=== PATIENT | female | born 1950 | race Caucasian/White ===

== ENCOUNTER 2022-09-14 16:47 | Emergency (ER) | payer MEDICARE, MEDICAID, SELFPAY ==
--- NOTE | 2022-09-14 17:22 | XRR_ITS ---
PROCEDURE INFORMATION: Exam: XR Left Foot Exam date and time: 09/14/2022 5:30 PM Age: 71 years old Clinical indication: Pain; Ankle; Left; Additional info: Swelling, pain TECHNIQUE: Imaging protocol: Radiologic exam of the Left foot. Views: 3 or more views. COMPARISON: No relevant prior studies available. FINDINGS: Bones/joints: Osteopenia. No acute fracture dislocation or obvious bony erosions. Mild 1st MTP degenerative changes with probable hallux valgus. Soft tissues: Dorsal soft tissue swelling. No soft tissue gas. Other findings: Three nonweightbearing views submitted. XR/XR foot LT min 3V* [id number] IMPRESSION: No acute osseous findings.
--- NOTE | 2022-09-14 17:22 | XRR_ITS ---
PROCEDURE INFORMATION: Exam: XR Left Ankle Exam date and time: 09/14/2022 5:30 PM Age: 71 years old Clinical indication: Pain; Ankle; Left; Additional info: Swelling, pain TECHNIQUE: Imaging protocol: Radiologic exam of the Left ankle. Views: 3 or more views. COMPARISON: No relevant prior studies available. FINDINGS: Bones/joints: Osteopenia. No acute fracture dislocation or suspicious periosteal thickening/bony erosions. Minimal spurring at the dorsal talonavicular joint and medial tibiotalar joint. Soft tissues: Soft tissue swelling without soft tissue gas. XR/XR ankle LT min 3V* [id number] IMPRESSION: Soft tissue swelling. No soft tissue gas or obvious acute osseous findings.
--- NOTE | 2022-09-14 17:22 | USR_ITS ---
PROCEDURE INFORMATION: Exam: US Duplex Left Lower Extremity Veins, Limited Exam date and time: 09/14/2022 5:41 PM Age: 71 years old Clinical indication: Edema, localized; Lower extremity, left; Additional info: Swelling, redness, pain TECHNIQUE: Imaging protocol: Real-time Duplex ultrasound of the Left Lower Extremity with 2-D emerson scale, color Doppler flow and spectral waveform analysis with image documentation. Limited exam focused on the left lower extremity veins. COMPARISON: CR XR ankle LT min 3V* [id number] 09/14/2022 5:30 PM FINDINGS: Left deep veins: Calf vein assessment is limited due to body habitus and soft tissue swelling. The common femoral, femoral, proximal profunda femoral and popliteal veins are patent without thrombus. Normal Doppler waveforms. Normal compressibility and/or augmentation response. Left superficial veins: Unremarkable. Saphenofemoral junction is patent without thrombus. Soft tissues: Subcutaneous soft tissue edema is present. US/[place] [address] IMPRESSION: No acute DVT.
[2022-09-14 17:30] VITALS: BP 172/62; PULSE 63; RESP 17; TEMP 36.9; O2SAT 98
--- NOTE | 2022-09-14 18:01 | W.ED.FALL ---
HPI - Fall General: Chief Complaint: Fall Stated Complaint: Left foot pain Time Seen by Provider: 09/14/22 17:01 Source: other ([facility] documents) Mode of arrival: EMS Limitations: altered mental status (dementia) History of Present Illness: Patient was brought to the emergency department by EMS from the nursing facility. Neither myself or the nurse was present to take report from EMS and the patient has dementia where she is only oriented to person. There is a packet from the [facility] and a note indicating they wanted a venous Doppler of the left extremity and x-ray of the left foot due to complaints of pain, swelling, now redness. All of the review was from the patient's prior paperwork as there are no previous documents in the patient's chart. Patient showed no signs of CHF or CKD recorded but does have anemia and significant dementia. Patient apparently has recurrent falls as indicated by her paperwork. When asked why the patient was brought in, patient stated I guess it is because I needed to go to the bathroom . Review of Systems General: Reports: ROS unobtainable due to mental status (Patient is not responding to questions appropriately) Physical Exam Const: COMMON NORMALS: no acute distress and alert; negative for patient oriented x3 OTHER: Patient is pleasant and smiling. She is very social however, when asked basic questions like did you hurt your foot? Patient will respond with something unrelated to any type of foot injury or pain. HENMT: COMMON NORMALS: normocephalic; head/scalp not atraumatic HEAD & SCALP: normocephalic, contusion and hematoma; not atraumatic and no raccoon eyes Eye: COMMON NORMALS: Equal, round and reactive pupils present, EOMs intact bilaterally and conjunctivae normal CONJUNCTIVA: Yes conjunctivae normal PUPIL: Yes Equal, round and reactive pupils present Neck/C-Spine: COMMON NORMALS: full ROM, no meningeal signs and no JVD Resp: COMMON NORMALS: normal respiratory effort, No retractions and No use of accessory muscles Cardio: COMMON NORMALS: no JVD, regular rate and regular rhythm RATE: regular rate RHYTHM: regular rhythm GI: COMMON NORMALS: Normal to inspection, nondistended, normoactive bowel sounds present and Soft to palpation PALPATION: Yes Soft to palpation : COMMON NORMALS: Yes normal external appearance Extremity: COMMON NORMALS: negative for full ROM (patient not ambulatory while in ER) and negative for no pedal edema NARRATIVE EXTREMITY EXAM: Initial intake note indicated an observed shortened and rotated right lower extremity however, reinspection showed patient with normal anatomical placement of her right lower extremity including the foot with flexion extension of her right hip observed Neuro: COMMON NORMALS: negative for patient oriented x3 SENSORIUM/ORIENTATION: Yes alert MENINGEAL SIGNS: Yes no meningeal signs Skin: OTHER: Patient is covered in bruises of various stages of healing. Patient has a large bruise affecting the left side of her face that is yellow. She has multiple bruises on her upper extremities. Patient has purple bruising noted to the toes of the left foot. Patient has a large bruise to the right anterior kang. Patient has a large well-healed surgical scar along the lateral proximal right thigh. Patient has an area of erythema and what appears to be yeast infection to her mid pannus fold however, there is cream/poweder along her pannus fold noted. Patient's left lower extremity is edematous with 2+ pitting. There is erythema to the distal left lower extremity and ankle with edema into the left foot as well. Patient did not indicate pain on palpation during exam. Course Vital Signs: Vital signs: Vital Signs Temperature 98.5 F 09/14/22 17:30 Pulse Rate 63 09/14/22 17:30 Respiratory Rate 17 09/14/22 17:30 Blood Pressure 172/62 09/14/22 17:30 Pulse Oximetry 98 09/14/22 17:30 Oxygen Delivery Me thod 09/14/22 17:30 MDM - Fall Medical Decision Making Patient presents to the emergency department today from EMS transport. Patient comes with a packet of paperwork from her nursing facility indicating concerns for the swelling and redness of her left lower extremity requesting imaging of the left foot and venous ultrasound of the left lower extremity. Venous Doppler is negative. The swelling is unilateral and with the erythema, did suspect more of an infectious type pattern. Lab work shows a slightly elevated white blood cell count. Urinalysis is negative for any signs of infection. We will treat for cellulitis based on exam and lab work. Patient was given her first dose of doxycycline here with prescription sent on for her to continue treatment at her nursing facility. Differential Diagnosis Likely syncope and compression fracture (Foot fracture, ankle fracture, hematoma, DVT, cellulitis, UTI) Lab Data 09/14/22 18:10 09/14/22 18:10 Radiology Impressions Ankle X-Ray 09/14/22 17:22 IMPRESSION: Soft tissue swelling. No soft tissue gas or obvious acute osseous findings. Foot X-Ray 09/14/22 17:22 IMPRESSION: No acute osseous findings. Venous Duplex 09/14/22 17:22 IMPRESSION: No acute DVT. Laboratory Results WBC 10.1 10^3/uL (4.0-10.0) H 09/14/22 18:10 RBC 4.06 10^6/uL (4.1-5.3) L 09/14/22 18:10 Hgb 11.6 g/dL (11.5-15.3) 09/14/22 18:10 Hct 36.4 % (37.0-47.0) L 09/14/22 18:10 MCV 89.7 fl (81-99) 09/14/22 18:10 MCH 28.6 pg (28.0-34.0) 09/14/22 18:10 MCHC 31.9 g/dL (30.0-36.0) 09/14/22 18:10 RDW 12.9 % (12.1-15.1) 09/14/22 18:10 Plt Count 388 10^3/cmm (130-400) 09/14/22 18:10 MPV 10.0 fL (7.4-10.4) 09/14/22 18:10 Neut % (Auto) 67.8 % 09/14/22 18:10 Lymph % (Auto) 19.8 % 09/14/22 18:10 [place] % (Auto) 8.2 % 09/14/22 18:10 Eos % (Auto) 3.3 % 09/14/22 18:10 Baso % (Auto) 0.7 % 09/14/22 18:10 Neut # (Auto) 6.83 10^3/uL (1.8-7.7) 09/14/22 18:10 Lymph # (Auto) 2.0 10^3/uL (0.8-4.8) 09/14/22 18:10 [place] # (Auto) 0.8 10^3/uL (0.2-0.9) 09/14/22 18:10 Eos # (Auto) 0.3 10^3/uL (0.0-0.8) 09/14/22 18:10 Baso # (Auto) 0.1 10^3/uL (0.0-0.1) 09/14/22 18:10 Nucleated RBC % (auto) 0 % 09/14/22 18:10 Nucleated RBCs # 0.0 /100WBC 09/14/22 18:10 Sodium 136 mmol/L (136-145) 09/14/22 18:10 Potassium 4.1 mmol/L (3.5-5.1) 09/14/22 18:10 Chloride 101 mmol/L (98-107) 09/14/22 18:10 Carbon Dioxide 26 mmol/L (22-29) 09/14/22 18:10 Anion Gap 13.1 (5-19) 09/14/22 18:10 BUN 16 mg/dL (8-23) 09/14/22 18:10 Creatinine 0.8 mg/dL (0.5-0.9) 09/14/22 18:10 GFR Calculation Not Reportable 09/14/22 18:10 Glucose 96 mg/dL (65-115) 09/14/22 18:10 Calculated Osmolality 283 mOsm/kg (285-295) L 09/14/22 18:10 Calcium 9.0 mg/dL (8.5-10.5) 09/14/22 18:10 Total Bilirubin 0.3 mg/dL (0.15-1.2) 09/14/22 18:10 AST 17 U/L (0-32) 09/14/22 18:10 ALT 18 U/L (0-33) 09/14/22 18:10 Alkaline Phosphatase 91 U/L (35-105) 09/14/22 18:10 Total Protein 7.3 g/dL (6.6-8.7) 09/14/22 18:10 Albumin 3.8 g/dL (3.5-5.2) 09/14/22 18:10 Globulin 3.5 g/dL (1.3-4.6) 09/14/22 18:10 Urine Color Yellow (Yellow) 09/14/22 17:18 Urine Appearance Clear (CLEAR) 09/14/22 17:18 Urine pH 7 (5-7) 09/14/22 17:18 Ur Specific [place] 1.005 (1.005-1.030) 09/14/22 17:18 Urine Protein Neg (Negative) 09/14/22 17:18 Urine Glucose (UA) Norm (Normal) 09/14/22 17:18 Urine Ketones Negative (Negative) 09/14/22 17:18 Urine Blood Neg (Negative) 09/14/22 17:18 Urine Nitrate Negative (Negative) 09/14/22 17:18 Urine Bilirubin Neg (Negative) 09/14/22 17:18 Urine Urobilinogen Neg mg/dL (Negative) 09/14/22 17:18 Ur Leukocyte Esterase Negative (Negative) 09/14/22 17:18 Discharge Plan Discharge Patient Disposition: Home Clinical Impression: Cellulitis of left lower limb Condition: Stable Prescriptions: New doxycycline hyclate 100 mg tablet 100 mg PO BID 10 Days Qty: 20 0RF Discharge Orders: Discharge ED (Routine); Ordered 09/14/22 Ordered By: America Carrera Referrals: Dianelys Escobar FNP [Family Provider] - Discharge Diet: Usual diet Discharge Activity: Increase activity as tolerated Patient Instructions: Cellulitis (ED) Activity Restrictions/Additional Instructions: Imaging today was negative for any signs of acute bony abnormality or injuries. Patient's lab work showed a slightly elevated white blood cell count and a completely normal urinalysis. Given the swelling and erythema of the left lower extremity we are treating for a cellulitis. Patient received an IV dose of doxycycline here in the ER and a prescription for continued treatment over the next 10 days was provided. Patient needs to try and keep the extremity up and elevated. She needs to take her medications and continue to observe for any spreading swelling, redness, or new onset fevers. If patient is acutely worsening she should be seen and reevaluated again. Coding Level of Care Code ED [employer] for [employer] Fwd Exam Comprehensive
[2022-09-14 18:20] LABS: Basophils # 0.1 10^3/uL (0.0-0.1); Basophils % 0.7 %; Eosinophils # 0.3 10^3/uL (0.0-0.8); Eosinophils % 3.3 %; Hematocrit 36.4 % (37.0-47.0); Hemoglobin 11.6 g/dL (11.5-15.3); Lymphocytes % 19.8 %; Mean Corpuscular HGB Conc 31.9 g/dL (30.0-36.0); Mean Corpuscular Hemoglobin 28.6 pg (28.0-34.0); Mean Corpuscular Volume 89.7 fl (81-99); Monocytes # 0.8 10^3/uL (0.2-0.9); Monocytes % 8.2 %; Neutrophils # 6.83 10^3/uL (1.8-7.7); Neutrophils % 67.8 %; Nucleated Red Blood Cells % 0 %; Platelet Count 388 10^3/cmm (130-400); Red Blood Count 4.06 10^6/uL (4.1-5.3); Red Cell Distribution Width 12.9 % (12.1-15.1); White Blood Count 10.1 10^3/uL (4.0-10.0)
--- NOTE | 2022-09-14 18:40 | PC.NURSE ---
pedal pulses present via Doppler
[2022-09-14 18:50] LABS: Alanine Aminotransferase 18 U/L (0-33); Albumin Level 3.8 g/dL (3.5-5.2); Alkaline Phosphatase 91 U/L (35-105); Anion Gap 13.1 (5-19); Aspartate Amino Transferase 17 U/L (0-32); Blood Urea Nitrogen 16 mg/dL (8-23); Carbon Dioxide 26 mmol/L (22-29); Chloride 101 mmol/L (98-107); Globulin 3.5 g/dL (1.3-4.6); Glucose 96 mg/dL (65-115); Osmolality Calculated 283 mOsm/kg (285-295); Potassium 4.1 mmol/L (3.5-5.1); Sodium 136 mmol/L (136-145); Total Bilirubin 0.3 mg/dL (0.15-1.2); Total Protein 7.3 g/dL (6.6-8.7)
[2022-09-14 20:15] LABS: Add Urine Microscopic? NO; Charge for UA Resulting for Rev
[2022-09-14 20:27] LABS: Bilirubin Urine Neg (Negative); Blood Urine Neg (Negative); Glucose Urine UA Norm (Normal); Ketones Urine Negative (Negative); Leukocyte Esterase Urine Negative (Negative); Nitrate Urine Negative (Negative); Protein Urine Neg (Negative); Specific Gravity, Urine 1.005 (1.005-1.030); Urine Appearance Clear (CLEAR); Urine Color Yellow (Yellow); Urobilinogen Urine Neg (Negative); pH Urine 7 (5-7)
[2022-09-14 21:07] VITALS: BP 168/71; PULSE 65; RESP 18; O2SAT 98
[2022-09-14] MEDS: doxycycline 100 MG in sodium chloride 0.9% (plus) 100 ML IV (21:37)
[2022-09-14 22:30] VITALS: BP 155/69; PULSE 62; RESP 18; O2SAT 99
--- NOTE | 2022-09-15 00:05 | PC.NURSE ---
Updated report and discharge reported to PIETER Beltran at [facility]
[2022-09-15 02:00] VITALS: BP 149/74; PULSE 62; RESP 16; O2SAT 97
--- NOTE | 2022-09-15 05:47 | XRR_ITS ---
PROCEDURE INFORMATION: Exam: XR Right Hip Exam date and time: 09/15/2022 5:49 AM Age: 71 years old Clinical indication: Right hip pain. History of hip arthroplasty. External rotation and forshortening of right leg. Possible fracture. TECHNIQUE: Imaging protocol: Radiologic exam of the Right hip. Views: 1 view hip with pelvis when performed. COMPARISON: CT abdomen pelvis wo con [id number] 09/13/2017 8:36 AM FINDINGS: Bones/joints: A right hip hemiarthroplasty is situated in appropriate alignment. No hardware complication or fracture is seen. There is deformity of the mid femoral diaphysis related to remote, healed fracture. 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 Soft tissues: No gross soft tissue swelling. XR/XR hip RT 2-3V wo/w pel* [id number] IMPRESSION: A right hip hemiarthroplasty is situated in appropriate alignment. No hardware acute fracture or hardware complication is seen. 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
[2022-09-15 06:07] VITALS: BP 161/64; PULSE 66; RESP 18; O2SAT 98
--- NOTE | 2022-09-15 20:57 | PC.NURSE ---
Positive Blood Culture results taken via verbal from Lab for gram positive cocci clusters . Dr. momin notified and stated Doxycycline Prescription appropriate and will re-evaluate remaining blood cultures.
== END 2022-09-15 06:08 | disposition home or self-care (01) ==
PROVIDERS: Emergency Provider Physician Assistant; Family Provider Nurse Practitioner
DX: L03.116 Cellulitis of left lower limb (principal); F03.90 Unspecified dementia, unspecified severity, without behavioral disturbance, psychotic disturbance, mood disturbance, and anxiety
CPT/HCPCS: 36415; 73502; 73610; 73630; 80053; 81003; 85025; 87040; 93971; 96365; 96366; 99285; J3490

== ENCOUNTER 2023-10-15 13:22 | Emergency (ER) | payer MEDICARE, MEDICAID, SELFPAY ==
--- NOTE | 2023-10-15 13:31 | W.ED.AMS ---
Documented by User: Nroris Westbrook DO 10/16/23 14:16 HPI - Altered Mental Status General: Chief Complaint: Altered Mental Status Stated Complaint: AMS Time Seen by Provider: 10/15/23 13:30 Source: EMS Mode of arrival: ambulatory History of Present Illness: 72-year-old female patient presents to the ER status post following. Patient fell approximately on October 03, 2023. Patient had some increased confusion since then. Patient is normally able to ambulate. Last few days she has not been acting like herself. Patient's range of motion is limited due to leg pain. Left knee is remarkably swollen compared to the right. We did contact care home to confirm history she had been seen at another facility evaluation was negative per the report MD complaint: altered mental status Onset (ago): minute(s) Review of Systems Const: Denies: fever(s) or chills Card: Denies: chest pain Resp: Denies: dyspnea GI: Denies: abdominal pain : Denies: dysuria, urinary frequency or urinary urgency Musc: Denies: neck pain or back pain Skin/Breast: Denies: rash Physical Exam Const: GENERAL APPEARANCE: cooperative and comfortable ORIENTATION/CONSCIOUSNESS: Yes awake HENMT: COMMON NORMALS: normocephalic, atraumatic and hearing grossly normal bilaterally HEAD & SCALP: normocephalic and atraumatic Resp: COMMON NORMALS: normal respiratory effort, No retractions, No use of accessory muscles and clear to auscultation bilaterally AUSCULTATION: clear to auscultation bilaterally Cardio: COMMON NORMALS: regular rate, regular rhythm and No murmurs present (Cardio) RATE: regular rate RHYTHM: regular rhythm GI: COMMON NORMALS: Soft to palpation and No hepatosplenomegaly present AUSCULTATION: Yes normoactive bowel sounds PALPATION: Yes Soft to palpation, No Tenderness to palpation present (GI), No Guarding due to palpation present (GI) and Yes No hepatosplenomegaly present Extremity: OTHER: Obvious deformity to the right knee with ecchymosis and swelling Skin: COMMON NORMALS: no rashes or lesions noted GENERAL SKIN EXAM: no rashes or lesions noted Course Vital Signs: Vital signs: Vital Signs Pulse Rate 90 10/15/23 22:07 Respiratory Rate 18 10/15/23 21:26 Blood Pressure 136/92 10/15/23 22:07 Pulse Oximetry 96 10/15/23 22:07 Oxygen Delivery Me thod Room Air 10/15/23 21:26 MDM - Altered Mental Status Medical Decision Making Patient has obvious deformity distal femur with fracture around the arthroplasty. Initially discussed with Dr. Almendarez and hospitalist will Dr. Almendarez recommended admission for fixation. Later Dr. Almendarez contacted me found he did not have the appropriate equipment to plate this fracture came down to the ER and ultimately recommended transfer to a tertiary care facility. Dr. Melissa was on duty by then to see Dr. Melissa's note for transfer. Dr. Almendarez Ortho came down and evaluated the patient as well as her scans. He feels that she probably needs a distal femur replacement which cannot be performed at this facility. Patient be transferred out. [facility] was called this will be ER to ER transfer secondary to trauma Dr. Heredia ER doc accepted. We also called the trauma Ortho team and I spoke with their PA who said they can take care of this no problem. Patient will be transferred to [facility] ER Lab Data 10/15/23 13:58 10/15/23 13:[address] 10/15/23 15:25 IMPRESSION: Fracture of the distal left femur abutting the femoral component of the arthroplasty. The fracture is not fully characterized due to the considerable streak artifact. There is probably loosening of the femoral component of the arthroplasty. Left knee joint effusion. Head CT 10/15/23 17:22 IMPRESSION: 1. No acute intracranial abnormality. Femur X-Ray 10/15/23 17:24 IMPRESSION: 1. Acute comminuted displaced periprosthetic fracture of the distal left femur. Laboratory Results WBC 12.43 10^3/uL (3.29-11.43) H 10/15/23 13:58 RBC 3.72 10^6/uL (3.85-5.65) L 10/15/23 13:58 Hgb 10.70 g/dL (11.27-16.99) L 10/15/23 13:58 Hct 33.5 % (36-47) L 10/15/23 13:58 MCV 90.1 fl (85-98) 10/15/23 13:58 MCH 28.8 pg (27-33) 10/15/23 13:58 MCHC 31.9 g/dL (30-55) 10/15/23 13:58 RDW 13.1 % (12.1-15.1) 10/15/23 13:58 Plt Count 456 10^3/cmm (157-399) H 10/15/23 13:58 MPV 9.7 fL (7.4-10.4) 10/15/23 13:58 Neut % (Auto) 78.1 % 10/15/23 13:58 Lymph % (Auto) 10.5 % 10/15/23 13:58 Swisher % (Auto) 7.3 % 10/15/23 13:58 Eos % (Auto) 3.0 % 10/15/23 13:58 Baso % (Auto) 0.7 % 10/15/23 13:58 Neut # (Auto) 9.71 10^3/uL (1.8-7.7) H 10/15/23 13:58 Lymph # (Auto) 1.3 10^3/uL (0.8-4.8) 10/15/23 13:58 Swisher # (Auto) 0.9 10^3/uL (0.2-0.9) 10/15/23 13:58 Eos # (Auto) 0.4 10^3/uL (0.0-0.8) 10/15/23 13:58 Baso # (Auto) 0.1 10^3/uL (0.0-0.1) 10/15/23 13:58 Nucleated RBC % (auto) 0 % 10/15/23 13:58 Nucleated RBCs # 0.0 /100WBC 10/15/23 13:58 Sodium 137 mmol/L (136-145) 10/15/23 13:58 Potassium 4.2 mmol/L (3.5-5.1) 10/15/23 13:58 Chloride 101 mmol/L (98-107) 10/15/23 13:58 Carbon Dioxide 24 mmol/L (22-29) 10/15/23 13:58 Anion Gap 16.2 (5-19) 10/15/23 13:58 BUN 22 mg/dL (8-23) 10/15/23 13:58 Creatinine 0.8 mg/dL (0.5-0.9) 10/15/23 13:58 GFR Calculation Not Reportable 10/15/23 13:58 Glucose 94 mg/dL (65-115) 10/15/23 13:58 Calculated Osmolality 287 mOsm/kg (285-295) 10/15/23 13:58 Calcium 9.1 mg/dL (8.5-10.5) 10/15/23 13:58 Total Bilirubin 0.4 mg/dL (0.15-1.2) 10/15/23 13:58 AST 17 U/L (0-32) 10/15/23 13:58 ALT 14 U/L (0-33) 10/15/23 13:58 Alkaline Phosphatase 120 U/L (35-105) H 10/15/23 13:58 Troponin T Baseline 183 ng/L (0-10) H* 10/15/23 13:58 Troponin T 120 Minute 171.5 ng/L (0-10) H 10/15/23 16:00 Delta Troponin T -11.5 ABS# (0-10) L 10/15/23 16:00 Troponin T Hi Sens 6Hr 197.8 ng/L (0-10) H 10/15/23 20:25 Troponin T Hi Sens 6Hr Delta 14.8 ng/L (0-12) H* 10/15/23 20:25 Total Protein 6.4 g/dL (6.6-8.7) L 10/15/23 13:58 Albumin 3.7 g/dL (3.5-5.2) 10/15/23 13:58 Globulin 2.7 g/dL (1.3-4.6) 10/15/23 13:58 Urine Color Yellow (Yellow) 10/15/23 15:00 Urine Appearance Clear (CLEAR) 10/15/23 15:00 Urine pH 6 (5-7) 10/15/23 15:00 Ur Specific [place] 1.010 (1.005-1.030) 10/15/23 15:00 Urine Protein Neg (Negative) 10/15/23 15:00 Urine Glucose (UA) Norm (Normal) 10/15/23 15:00 Urine Ketones Negative (Negative) 10/15/23 15:00 Urine Blood Neg (Negative) 10/15/23 15:00 Urine Nitrate Negative (Negative) 10/15/23 15:00 Urine Bilirubin Neg (Negative) 10/15/23 15:00 Urine Urobilinogen Neg mg/dL (Negative) 10/15/23 15:00 Ur Leukocyte Esterase Negative (Negative) 10/15/23 15:00 Discharge Plan Discharge Patient Disposition: Xfer Short-Term Hosp Clinical Impression: Altered mental status Qualifiers: Altered mental status type: unspecified Qualified Code(s): R41.82 - Altered mental status, unspecified Fracture of distal end of femur Qualifiers: Encounter type: initial encounter Fracture type: closed Fracture morphology: unspecified fracture morphology Laterality: left Qualified Code(s): S72.402A - Unspecified fracture of lower end of left femur, initial encounter for closed fracture Referrals: Dianelys Escobar FNP [Family Provider] - Coding Level of Care Code ED Machine Designer for Chg Fwd Documented by User: Mukund Melissa DO 10/15/23 22:00 HPI - Altered Mental Status General: Chief Complaint: Altered Mental Status Stated Complaint: AMS Time Seen by Provider: 10/15/23 13:30 History of Present Illness: Patient presents to the ER status post following. Patient fell approximately on October 03, 2023. Patient had some increased confusion since then. Patient is normally able to ambulate. Last few days she has not been acting like herself. Patient's range of motion is limited due to leg pain. Left knee is remarkably swollen compared to the right. Review of Systems General: Reports: 10 or more systems reviewed and unremarkable except in HPI and below Course Vital Signs: Vital signs: Vital Signs Pulse Rate 90 10/15/23 22:07 Respiratory Rate 18 10/15/23 21:26 Blood Pressure 136/92 10/15/23 22:07 Pulse Oximetry 96 10/15/23 22:07 Oxygen Delivery Me thod Room Air 10/15/23 21:26 MDM - Altered Mental Status Medical Decision Making Dr. Tanesha Kinsey came down and evaluated the patient as well as her scans. He feels that she probably needs a distal femur replacement which cannot be performed at this facility. Patient be transferred out. [facility] was called this will be ER to ER transfer secondary to trauma Dr. Heredia ER doc accepted. We also called the trauma Ortho team and I spoke with their PA who said they can take care of this no problem. Patient will be transferred to [facility] ER Differential Diagnosis Likely altered mental status; Unlikely alcoholic intoxication, delirium, dementia, hypoglycemia, hyponatremia, subarachnoid hemorrhage or sepsis Medical Records I reviewed the patient's medical records. Lab Data I reviewed the patient's lab results. 10/15/23 13:58 10/15/23 13:[address] 10/15/23 15:25 IMPRESSION: Fracture of the distal left femur abutting the femoral component of the arthroplasty. The fracture is not fully characterized due to the considerable streak artifact. There is probably loosening of the femoral component of the arthroplasty. Left knee joint effusion. Head CT 10/15/23 17:22 IMPRESSION: 1. No acute intracranial abnormality. Femur X-Ray 10/15/23 17:24 IMPRESSION: 1. Acute comminuted displaced periprosthetic fracture of the distal left femur. Laboratory Results WBC 12.43 10^3/uL (3.29-11.43) H 10/15/23 13:58 RBC 3.72 10^6/uL (3.85-5.65) L 10/15/23 13:58 Hgb 10.70 g/dL (11.27-16.99) L 10/15/23 13:58 Hct 33.5 % (36-47) L 10/15/23 13:58 MCV 90.1 fl (85-98) 10/15/23 13:58 MCH 28.8 pg (27-33) 10/15/23 13:58 MCHC 31.9 g/dL (30-55) 10/15/23 13:58 RDW 13.1 % (12.1-15.1) 10/15/23 13:58 Plt Count 456 10^3/cmm (157-399) H 10/15/23 13:58 MPV 9.7 fL (7.4-10.4) 10/15/23 13:58 Neut % (Auto) 78.1 % 10/15/23 13:58 Lymph % (Auto) 10.5 % 10/15/23 13:58 Swisher % (Auto) 7.3 % 10/15/23 13:58 Eos % (Auto) 3.0 % 10/15/23 13:58 Baso % (Auto) 0.7 % 10/15/23 13:58 Neut # (Auto) 9.71 10^3/uL (1.8-7.7) H 10/15/23 13:58 Lymph # (Auto) 1.3 10^3/uL (0.8-4.8) 10/15/23 13:58 Swisher # (Auto) 0.9 10^3/uL (0.2-0.9) 10/15/23 13:58 Eos # (Auto) 0.4 10^3/uL (0.0-0.8) 10/15/23 13:58 Baso # (Auto) 0.1 10^3/uL (0.0-0.1) 10/15/23 13:58 Nucleated RBC % (auto) 0 % 10/15/23 13:58 Nucleated RBCs # 0.0 /100WBC 10/15/23 13:58 Sodium 137 mmol/L (136-145) 10/15/23 13:58 Potassium 4.2 mmol/L (3.5-5.1) 10/15/23 13:58 Chloride 101 mmol/L (98-107) 10/15/23 13:58 Carbon Dioxide 24 mmol/L (22-29) 10/15/23 13:58 Anion Gap 16.2 (5-19) 10/15/23 13:58 BUN 22 mg/dL (8-23) 10/15/23 13:58 Creatinine 0.8 mg/dL (0.5-0.9) 10/15/23 13:58 GFR Calculation Not Reportable 10/15/23 13:58 Glucose 94 mg/dL (65-115) 10/15/23 13:58 Calculated Osmolality 287 mOsm/kg (285-295) 10/15/23 13:58 Calcium 9.1 mg/dL (8.5-10.5) 10/15/23 13:58 Total Bilirubin 0.4 mg/dL (0.15-1.2) 10/15/23 13:58 AST 17 U/L (0-32) 10/15/23 13:58 ALT 14 U/L (0-33) 10/15/23 13:58 Alkaline Phosphatase 120 U/L (35-105) H 10/15/23 13:58 Troponin T Baseline 183 ng/L (0-10) H* 10/15/23 13:58 Troponin T 120 Minute 171.5 ng/L (0-10) H 10/15/23 16:00 Delta Troponin T -11.5 ABS# (0-10) L 10/15/23 16:00 Troponin T Hi Sens 6Hr 197.8 ng/L (0-10) H 10/15/23 20:25 Troponin T Hi Sens 6Hr Delta 14.8 ng/L (0-12) H* 10/15/23 20:25 Total Protein 6.4 g/dL (6.6-8.7) L 10/15/23 13:58 Albumin 3.7 g/dL (3.5-5.2) 10/15/23 13:58 Globulin 2.7 g/dL (1.3-4.6) 10/15/23 13:58 Urine Color Yellow (Yellow) 10/15/23 15:00 Urine Appearance Clear (CLEAR) 10/15/23 15:00 Urine pH 6 (5-7) 10/15/23 15:00 Ur Specific [place] 1.010 (1.005-1.030) 10/15/23 15:00 Urine Protein Neg (Negative) 10/15/23 15:00 Urine Glucose (UA) Norm (Normal) 10/15/23 15:00 Urine Ketones Negative (Negative) 10/15/23 15:00 Urine Blood Neg (Negative) 10/15/23 15:00 Urine Nitrate Negative (Negative) 10/15/23 15:00 Urine Bilirubin Neg (Negative) 10/15/23 15:00 Urine Urobilinogen Neg mg/dL (Negative) 10/15/23 15:00 Ur Leukocyte Esterase Negative (Negative) 10/15/23 15:00 All radiology interpretation(s) finalized by discharge Discharge Plan Discharge Patient Disposition: Xfer Short-Term Hosp Clinical Impression: Altered mental status Qualifiers: Altered mental status type: unspecified Qualified Code(s): R41.82 - Altered mental status, unspecified Fracture of distal end of femur Qualifiers: Encounter type: initial encounter Fracture type: closed Fracture morphology: unspecified fracture morphology Laterality: left Qualified Code(s): S72.402A - Unspecified fracture of lower end of left femur, initial encounter for closed fracture Referrals: Dianelys Escobar FNP [Family Provider] - Coding Level of Care Code ED Machine Designer for Ion Peterson
--- NOTE | 2023-10-15 13:38 | ECG_ITS ---
[facility] Test Date: 2023-10-15 Pat Name: Ruby Lee Department: Room: Gender: Female Behaviorist: : 1950 Requested By: Norris Rivero Order Number: [id number] Alejandra MD: Arlette Almonte M.D. Measurements Intervals [place] Rate: 71 P: 61 AR: 123 QRS: 16 QRSD: 105 T: 82 QT: 412 QTc: 450 Interpretive Statements SINUS RHYTHM WITH OCCASIONAL SUPRAVENTRICULAR PREMATURE COMPLEXES Compared to ECG 09/03/2017 21:29:53 Sinus arrhythmia no longer present Electronically Signed On 10-15-2023 19:37:48 YARN COMBER by Arlette Almonte M.D. [email or web address] medical cle[facility] hospital, beachwoodYellowBrck/store/[id number]
[2023-10-15 14:00] VITALS: BP 135/66; PULSE 74
[2023-10-15 14:11] LABS: Basophils # 0.1 10^3/uL (0.0-0.1); Basophils % 0.7 %; Eosinophils # 0.4 10^3/uL (0.0-0.8); Hematocrit 33.5 % (36-47); Lymphocytes # 1.3 10^3/uL (0.8-4.8); Lymphocytes % 10.5 %; Mean Corpuscular HGB Conc 31.9 g/dL (30-55); Mean Corpuscular Hemoglobin 28.8 pg (27-33); Mean Corpuscular Volume 90.1 fl (85-98); Mean Platelet Volume 9.7 fL (7.4-10.4); Monocytes # 0.9 10^3/uL (0.2-0.9); Monocytes % 7.3 %; Neutrophils # 9.71 10^3/uL (1.8-7.7); Neutrophils % 78.1 %; Nucleated Red Blood Cells % 0 %; Platelet Count 456 10^3/cmm (157-399); Red Blood Count 3.72 10^6/uL (3.85-5.65); Red Cell Distribution Width 13.1 % (12.1-15.1); White Blood Count 12.43 10^3/uL (3.29-11.43)
[2023-10-15 14:36] LABS: Alanine Aminotransferase 14 U/L (0-33); Albumin Level 3.7 g/dL (3.5-5.2); Alkaline Phosphatase 120 U/L (35-105); Anion Gap 16.2 (5-19); Aspartate Amino Transferase 17 U/L (0-32); Blood Urea Nitrogen 22 mg/dL (8-23); Calcium 9.1 mg/dL (8.5-10.5); Carbon Dioxide 24 mmol/L (22-29); Chloride 101 mmol/L (98-107); Globulin 2.7 g/dL (1.3-4.6); Glucose 94 mg/dL (65-115); Osmolality Calculated 287 mOsm/kg (285-295); Potassium 4.2 mmol/L (3.5-5.1); Sodium 137 mmol/L (136-145); Total Bilirubin 0.4 mg/dL (0.15-1.2); Total Protein 6.4 g/dL (6.6-8.7)
[2023-10-15 14:46] LABS: Troponin(5th) Baseline 183 ng/L (0-10)
--- NOTE | 2023-10-15 14:52 | ECG_ITS ---
[facility] Test Date: 2023-10-15 Pat Name: Ruby Lee Department: Room: Gender: Female Medical Technologist: : 1950 Requested By: Norris Rivero Order Number: [id number] Alejandra MD: Arlette Almonte M.D. Measurements Intervals [place] Rate: 76 P: 70 [place]: 139 QRS: 19 QRSD: 99 T: 74 QT: 400 QTc: 452 Interpretive Statements SINUS RHYTHM Compared to ECG 10/15/2023 13:38:47 No significant changes Electronically Signed On 10-15-2023 19:43:13 CELL TUBER MACHINE by Arlette Almonte M.D. [id number]
--- NOTE | 2023-10-15 14:54 | XR_ITS ---
WS: [id number] Exam: XR knee LT 3V* [id number] Date/Time of Exam: 10/15/2023 2:57 PM Reason For Exam: pain swelling A LEFT total knee prosthesis is in place. There has been fracture of the distal LEFT femur in the reg ion of the femoral component of the prosthesis. Fracture age is difficult to determine based on these images. The tibial component is intact. There is joint effusion and soft tissue swelling about the k nee. IMPRESSION: 1. Fracture deformity of the distal femur involving the femoral component of the LEFT total knee repl acement. Fracture age is inconclusive. There is joint effusion and soft tissue swelling. Recommendations: CT of the LEFT knee recommended for further work-up.
--- NOTE | 2023-10-15 14:54 | USCV_ITS ---
Jesus Ruby Age: 72 Gender: F : 1950 Exam Date: 10/15/2023 15:24 Ordering Phys: Norris Westbrook DO Technologist: SAMMY [place] [facility] [place]ication: LLE SWELLING HISTORY: Lower extremity swelling. PROCEDURES: Venous duplex imaging was performed in only the left lower extremity. The following venous structures were evaluated: common femoral vein, profunda vein, proximal portion of the greater saphenous vein, superficial femoral vein, and the popliteal vein. In addition, the posterior tibial and peroneal trunk were evaluated. Serial compression, augmentation maneuvers, and spectral Doppler flow evaluation were performed. FINDINGS: No evidence of DVT seen in any vessel visualized at this time. CONCLUSIONS No DVT left lower extremity. Dr. Nory Delgado DO (Electronically Signed) Final Date: 15 October 2023 15:41 S
[2023-10-15 14:57] VITALS: BP 151/72; PULSE 75; O2SAT 96
[2023-10-15 15:11] LABS: Add Urine Microscopic? NO; Charge for UA Resulting for Rev
[2023-10-15 15:23] LABS: Bilirubin Urine Neg (Negative); Blood Urine Neg (Negative); Glucose Urine UA Norm (Normal); Ketones Urine Negative (Negative); Leukocyte Esterase Urine Negative (Negative); Nitrate Urine Negative (Negative); Protein Urine Neg (Negative); Urine Appearance Clear (CLEAR); Urine Color Yellow (Yellow); Urobilinogen Urine Neg (Negative); pH Urine 6 (5-7)
--- NOTE | 2023-10-15 15:25 | CTR_ITS ---
PROCEDURE INFORMATION: Exam: CT Left Lower Extremity Without Contrast, Knee Exam date and time: 10/15/2023 3:39 PM Age: 72 years old Clinical indication: Swelling or effusion of joint; Prior surgery; Surgery date: 6+ months; Surgery type: Knee replacement; Additional info: Fracture TECHNIQUE: Imaging protocol: CT of the left lower extremity without contrast was performed. Exam focused on the knee. Radiation optimization: All CT scans at this facility use at least one of these dose optimization techniques: automated exposure control; mA and/or kV adjustment per patient size (includes targeted exams where dose is matched to clinical indication); or iterative reconstruction. COMPARISON: CR XR knee LT 3V* [id number] 10/15/2023 3:01 PM RADIATION DOSE METRICS: Total DLP (mGy-cm): 489 FINDINGS: Bones/joints: Fracture of the distal left femur adjacent to and abutting the femoral component of the left total knee arthroplasty. The fracture appears comminuted and is probably acute or subacute. Full characterization of the fracture is not possible given the considerable streak artifact obscuring much of it caused by the arthroplasty. The femoral component of the prosthesis may be loose. There is a left knee joint effusion. No other obvious fractures. No evidence of loosening of the tibial and patellar components of the arthroplasty. Soft tissues: Otherwise, unremarkable. CT/CT knee LT wo con* [id number] IMPRESSION: Fracture of the distal left femur abutting the femoral component of the arthroplasty. The fracture is not fully characterized due to the considerable streak artifact. There is probably loosening of the femoral component of the arthroplasty. Left knee joint effusion.
[2023-10-15 15:31] VITALS: BP 162/72
[2023-10-15 16:27] LABS: Troponin 5 2HR 171.5 ng/L (0-10); Troponin 5 2HR Delta -11.5 ABS# (0-10)
--- NOTE | 2023-10-15 17:22 | CTR_ITS ---
PROCEDURE INFORMATION: Exam: CT Head Without Contrast Exam date and time: 10/15/2023 6:20 PM Age: 72 years old Clinical indication: Altered mental status/memory loss; Additional info: Trauma TECHNIQUE: Imaging protocol: Computed tomography of the head without contrast. Radiation optimization: All CT scans at this facility use at least one of these dose optimization techniques: automated exposure control; mA and/or kV adjustment per patient size (includes targeted exams where dose is matched to clinical indication); or iterative reconstruction. COMPARISON: CT head wo con* [id number] 09/03/2017 6:39 PM RADIATION DOSE METRICS: Total DLP (mGy-cm): 989 FINDINGS: Brain: Sequela of moderate-severe chronic microvascular ischemic changes with periventricular and deep white matter hypoattenuation. Patterson-white differentiation is otherwise maintained. No evidence of intra-axial or extra-axial hemorrhage. No mass effect or midline shift. Basilar cisterns are patent. Cerebral ventricles: There is ex vacuo dilatation of the lateral ventricles. No hydrocephalus. Paranasal sinuses: The visualized paranasal sinuses are well aerated. Mastoid air cells: The visualized mastoids and middle ears are clear. Bones/joints: The visualized calvarium and bony orbits are intact. Soft tissues: No gross soft tissue abnormality. CT/CT head wo con* [id number] IMPRESSION: 1. No acute intracranial abnormality.
--- NOTE | 2023-10-15 17:24 | XRR_ITS ---
PROCEDURE INFORMATION: Exam: XR Left Femur Exam date and time: 10/15/2023 5:29 PM Age: 72 years old Clinical indication: Pain; Thigh; Left; Prior surgery; Surgery date: 6+ months; Surgery type: Lt knee; Additional info: Distal femur FX TECHNIQUE: Imaging protocol: Radiologic exam of the left femur. Views: 2 views. COMPARISON: CT knee LT wo con* [id number] 10/15/2023 3:39 PM FINDINGS: Bones/joints: Acute comminuted displaced periprosthetic fracture of the distal left femur. The proximal-mid femur is intact. Soft tissues: Soft tissue edema of the distal thigh/knee. XR/XR femur LT min 2V* [id number] IMPRESSION: 1. Acute comminuted displaced periprosthetic fracture of the distal left femur.
[2023-10-15 18:04] VITALS: BP 174/93; PULSE 73; O2SAT 96
--- NOTE | 2023-10-15 19:27 | PC.NURSE ---
Attempted to contact patient's next of kin, her son, Rancho Lee, but the phone went to voicemail. Per [facility] staff, they have not been able to reach him by phone for some time. Address on file is in [facility]. [facility]'s Office to see if they could attempt to contact patient at his resident and ask him to call the hospital regarding his mother. The dispatcher said they would attempt to make contact and notify us.
--- NOTE | 2023-10-15 19:29 | ECG_ITS ---
[facility] Test Date: 2023-10-15 Pat Name: Ruby Lee Department: Room: Gender: Female Marine Specialist: : 1950 Requested By: Norris Rivero Order Number: [id number] Alejandra MD: Arlette Almonte M.D. Measurements Intervals [place] Rate: 76 P: 64 [place]: 132 QRS: 31 QRSD: 101 T: 82 QT: 401 QTc: 453 Interpretive Statements SINUS RHYTHM POSSIBLE LATERAL MYOCARDIAL INFARCTION , OF INDETERMINATE AGE [30 ms Q WAVE IN I/aVL/V5/V6] Compared to ECG 10/15/2023 14:52:35 Myocardial infarct finding now present Electronically Signed On 10-15-2023 19:46:17 DAYCARE MANAGER by Arlette Almonte M.D. [email or web address].Peach [email or web address] Lilynorthwest mississippi medical centerMemorial Sloan - Ket[facility] Cancer Centermetrohealth [facility].ThinkCERCA/[id number]
--- NOTE | 2023-10-15 19:57 | PM.CONSULT ---
Providers/Reason For Consult Consulting Physician/Specialty*: Kt Almendarez DO/orthopedic surgery Reason for Consult*: Left knee periprosthetic distal femur fracture Requesting Physician: Dr. Westbrook History of Present Illness History of Present Illness Ruby Lee is a 72 year old female demented who is a poor historian unable to obtain history from patient this is obtained from emergency department physician provider as well as ER nursing staff. Patient allegedly had a fall 4 days ago she is at a nursing facility. Allegedly she was able to be up ad jose prior to fall. Since fall has been minimally ambulatory no known history for her prior left total knee arthroplasty as patient is unable to give appropriate history for this. Patient was found to have a left distal femur periprosthetic fracture orthopedics was consulted for evaluation and treatment recommendations. Review of Systems General: Reports: ROS unobtainable due to mental status Medications/Allergies Home Medications Medication Instructions Recorded Confirmed Last Taken Type acetaminophen 325 mg tablet 650 mg PO QID PRN Pain 10/15/23 10/15/23 Unknown History aluminum-mag hydroxide-simethicone 30 ml PO QID PRN Constipation 10/15/23 10/15/23 Unknown History 200 mg-200 mg-20 mg/5 mL oral susp amlodipine 10 mg tablet 10 mg PO QAM 10/15/23 10/15/23 10/15/23 History celecoxib 200 mg capsule 200 mg PO QAM 10/15/23 10/15/23 10/15/23 History fluticasone propionate 50 1 spray intranasal DAILY 10/15/23 10/15/23 10/15/23 History mcg/actuation nasal spray,suspension lisinopril 20 mg tablet 20 mg PO DAILY 10/15/23 10/15/23 10/15/23 History lovastatin 40 mg tablet 40 mg PO BEDTIME 10/15/23 10/15/23 10/14/23 History magnesium hydroxide 400 mg/5 mL 30 ml PO DAILY PRN Constipation 10/15/23 10/15/23 Unknown History oral suspension (Milk of Magnesia) memantine 10 mg tablet 10 mg PO BID 10/15/23 10/15/23 10/15/23 History menthol See Rx Instructions .Route .COMPLEX 10/15/23 10/15/23 Unknown History naloxone 2 mg/2 mL syringe kit 2 mg IM Q2M PRN Opioid Overdose 10/15/23 10/15/23 Unknown History nystatin 100,000 unit/gram topical 1 applic topical Q6H PRN Rash 10/15/23 10/15/23 Unknown History powder ([facility]) paroxetine HCl 20 mg tablet 20 mg PO QPM 10/15/23 10/15/23 10/14/23 History vit no.95-ferrous 1 tab PO DAILY 10/15/23 10/15/23 10/15/23 History fumarate 28 mg-folic acid 800 mcg tablet () risperidone 0.25 mg tablet 0.25 mg PO BID 10/15/23 10/15/23 10/15/23 History sennosides 8.6 mg tablet 8.6 mg PO BID 10/15/23 10/15/23 10/15/23 History Allergies Allergy/AdvReac Type Severity Reaction Status Date / Time gabapentin Allergy Unknown Verified 10/15/23 15:49 Vitals/I&O/Wt Last Vital Signs Pulse 73 10/15/23 18:04 BP 174/93 10/15/23 18:04 Pulse Ox 96 10/15/23 18:04 O2 Del Method Room Air 10/15/23 14:57 Physical Exam Narrative: Demented 72-year-old female Unable to obtain full examination given patient's dementia unable to follow commands. Patient is found to have swelling and some ecchymosis around the left femur with withdrawing from pain to palpation of the left knee. Unable to tolerate knee range of motion or varus valgus stress given patient's pain patient will involuntarily wiggle her toes but unable to follow fall sensorimotor examination given her dementia. Distal pulses 2+ PT and DP. Left lower extremities warm well-perfused. Secondary survey examination she does not have any deformities to the bilateral upper extremities with no tenderness to palpation as well as no tenderness palpation of the bilateral hips negative pelvic stress examination as well as negative logroll to the right lower extremity and no tenderness to palpation of the right lower extremity joints. Data 10/15/23 13:58 10/15/23 13:58 Xray Ortho: My impression: X-rays multiple views of the left knee and left femur reviewed in person interpreted by myself demonstrating patient has severely distal periprosthetic left distal femur fracture Other CT: My impression: CT scan of the left knee reviewed in person interpreted by myself there is significant scatter effect secondary to the metal there is a significantly distal left periprosthetic distal femur fracture that does appear to have likely loosening of the femoral component of the arthroplasty. Radiologist's impression: CT/CT knee LT wo con* [id number] IMPRESSION: Fracture of the distal left femur abutting the femoral component of the arthroplasty. The fracture is not fully characterized due to the considerable streak artifact. There is probably loosening of the femoral component of the arthroplasty. Left knee joint effusion. A&P Assessment and plan (1) 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: Plan Imaging reviewed nonweightbearing left lower extremity Pain control Knee immobilizer Recommend refer out for possible left distal femur ORIF versus left distal femur replacement Patient presents is a demented 72-year-old female attempted to contact the number had on file for family which states numbers unavailable. At this point in time patient is a poor historian and history is obtained by emergency department staff. Reviewing the patient's images she has a severely low periprosthetic left distal femur fracture does appear to have loosening of the femoral component. At this point in time given she sounds as though she had ambulation prior to her injury from the rehab facility sounds like this is more her baseline of ambulation and I think possibly surgical intervention would likely be recommended. From the way of surgery I think her 2 options here would be an ORIF left distal femur versus a left distal femur replacement. Unfortunately the left distal femur/hinged knee replacement is unavailable in our facility as well as neither myself nor communicate with my other partners perform this procedure. I worry in the chance of fixing patient's left distal femur fracture with a standard ORIF procedure if the implant is found to be loose which it looks to be on CT scan that the ORIF would hide likelihood of fail and patient would end up needing a distal femur replacement point time would recommend she be in a facility that would be able to manage either surgical intervention options and have appropriate implants as well as specialist who can perform this procedure. Updated the emergency department staff and they will set up a transfer to another facility capable of managing this patient. Coding Level of Care Code Acute Code for Chg Fwd Diagnoses 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 M97.8XXA; Z96.659 Time Spent (min) 45
[2023-10-15 21:00] LABS: Troponin 5 6HR 197.8 ng/L (0-10); Troponin 5 6HR Delta 14.8 ng/L (0-12)
[2023-10-15 21:26] VITALS: BP 159/72; PULSE 78; RESP 18; O2SAT 96
[2023-10-15 22:07] VITALS: BP 136/92; PULSE 90; O2SAT 96
--- NOTE | 2023-10-15 22:18 | PC.NURSE ---
REPORT CALLED TO ANTONI WILLOUGHBY RN AT [facility]. ALL QUESTIONS AND CONCERNS ADDRESSED AT TIME OF REPORT.
--- NOTE | 2023-10-15 22:53 | PC.NURSE ---
[facility] contacted via phone and informed of pts transfer to [facility].
--- NOTE | 2023-10-15 23:43 | PC.NURSE ---
GAVE REPORT TO JACKIE ON [facility]. ALL QUESTIONS AND CONCERNS ADDRESSED AT TIME OF TRANSFER.
== END 2023-10-16 00:01 | disposition short-term general hospital (02) ==
PROVIDERS: Emergency Provider Family Medicine; Family Provider Nurse Practitioner
DX: R41.82 Altered mental status, unspecified (principal); R60.0 Localized edema; S72.402A Unspecified fracture of lower end of left femur, initial encounter for closed fracture; W19.XXXA Unspecified fall, initial encounter
CPT/HCPCS: 36415; 51702; 70450; 73552; 73562; 73700; 80053; 81003; 84484; 85025; 93005; 93971; 99285

== ENCOUNTER 2023-10-28 09:35 | Inpatient (IN) | payer MEDICARE, MEDICAID, SELFPAY ==
[2023-10-28] VITALS (15 sets, daily range): BP systolic 96–157; BP diastolic 58–86; PULSE 68–95; RESP 16–20; TEMP 36.3–37; O2SAT 90–98; BMI 24.3
--- NOTE | 2023-10-28 10:08 | ED_ITS ---
HPI - Nausea/Vomiting/Diarrhea 2 General: Chief complaint: Nausea/Vomiting/Diarrhea Stated complaint: coffee ground emesis Time Seen by Provider: 10/28/23 09:40 History of Present Illness: 72-year-old female presents to the emerg ency department from her [facility] via EMS personnel. The patient is an extremely poor historian as she has advanced dementia and is unable to respond appropriately. Patient recently had hip surgery and has been on Lovenox and aspirin and has had several episodes of coffee-ground emesis for the previous 2 days per the [facility] nursing staff and EMS personnel. EMS personnel state that the patient did have approximately 100 mL of emesis while in transport and it did appear dark-colored blood. Review of Systems 2 General: Reports: ROS unobtainable due to medical condition and ROS unobtainable due to mental status Physical Exam 2 Narrative: EXAM NARRATIVE: Constitutional: the patient appears well nourished and of normal development. Vital signs as documented. No acute distress at present. She is awake and alert only to person, she does have advanced dementia and is unable to provide any medical history. Head, eyes, ears, nose, mouth, throat: Normocephalic, atraumatic. Pupils-equal, round, reactive to light. No scleral icterus. Normal-appearing external ears. Normal appearing nasal turbinates, no drainage. No obvious oral lesions, posterior oropharynx without erythema or exudates. Neck: Supple, trachea is midline, no lymphadenopathy, no jugular venous distension, thyromegaly, or carotid bruits. Carotid upstrokes are brisk bilaterally. Lungs: clear to auscultation to all lung pereira. Symmetrical rise and fall of chest, no obvious signs of increased work of breathing at present. Cardiac: Regular rate and rhythm, positive S1, S2. No murmurs, rubs or gallops that I can appreciate Abdomen: Soft, obvious ventral hernia noted--unable to reduce. hypoactive bowel sounds to all quadrants. Large palpable mass-incarcerated ventral hernia to right of midline. Post-op surgical scar noted well healed. No organomegaly and abdominal bruits. Extremities: 2+ pulses in the upper extremities that are equal bilaterally, 2+ pulses in the lower extremities that are equal bilaterally. Non-edematous. Moves all extremities well, sensation to all extremities are noted. Patient was noted to have a left knee prosthesis fracture and was seen by the orthopedist Dr. Almendarez on October 15, 2023. Skin: Warm, dry, intact. Course 2 Vital Signs: Vital signs: Vital Signs Temperature 97.9 F 10/28/23 09:36 Pulse Rate 91 10/28/23 16:30 Respiratory Rate 16 10/28/23 09:36 Blood Pressure 110/63 10/28/23 16:30 Pulse Oximetry 97 10/28/23 16:30 Oxygen Delivery Me thod Room Air 10/28/23 16:30 MDM - Nausea/Vomiting/Diarrhea Medical Decision Making Physical exam completed and documented, I will obtain a CBC, CMP, PT PTT INR and attempt to obtain and verify hematemesis, I will provide IV access and obtain a CT scan of the abdomen pelvis. Lab Data I reviewed the patient's lab results. 10/28/23 08:45 10/28/23 08:45 Radiology Impressions Abdomen X-Ray 10/28/23 13:54 IMPRESSION: NG tube in stomach. Laboratory Results WBC 13.77 10^3/uL (3.29-11.43) H 10/28/23 08:45 RBC 3.25 10^6/uL (3.85-5.65) L 10/28/23 08:45 Hgb 9.30 g/dL (11.27-16.99) L 10/28/23 08:45 Hct 28.4 % (36-47) L 10/28/23 08:45 MCV 87.4 fl (85-98) 10/28/23 08:45 MCH 28.6 pg (27-33) 10/28/23 08:45 MCHC 32.7 g/dL (30-55) 10/28/23 08:45 RDW 13.7 % (12.1-15.1) 10/28/23 08:45 Plt Count 863 10^3/cmm (157-399) H 10/28/23 08:45 MPV 10.2 fL (7.4-10.4) 10/28/23 08:45 Neut % (Auto) 82.8 % 10/28/23 08:45 Lymph % (Auto) 7.3 % 10/28/23 08:45 Randall % (Auto) 8.7 % 10/28/23 08:45 Eos % (Auto) 0.1 % 10/28/23 08:45 Baso % (Auto) 0.3 % 10/28/23 08:45 Neut # (Auto) 11.41 10^3/uL (1.8-7.7) H 10/28/23 08:45 Lymph # (Auto) 1.0 10^3/uL (0.8-4.8) 10/28/23 08:45 Randall # (Auto) 1.2 10^3/uL (0.2-0.9) H 10/28/23 08:45 Eos # (Auto) 0.0 10^3/uL (0.0-0.8) 10/28/23 08:45 Baso # (Auto) 0.0 10^3/uL (0.0-0.1) 10/28/23 08:45 Nucleated RBC % (auto) 0 % 10/28/23 08:45 Nucleated RBCs # 0.0 /100WBC 10/28/23 08:45 PT 14.50 SECONDS (12.1-14.9) 10/28/23 10:45 INR 1.09 (0.8-1.2) 10/28/23 10:45 APTT 39.9 SECONDS (23.9-36.7) H 10/28/23 10:45 Sodium 135 mmol/L (136-145) L 10/28/23 08:45 Potassium 4.4 mmol/L (3.5-5.1) 10/28/23 08:45 Chloride 93 mmol/L (98-107) L 10/28/23 08:45 Carbon Dioxide 28 mmol/L (22-29) 10/28/23 08:45 Anion Gap 18.4 (5-19) 10/28/23 08:45 BUN 37 mg/dL (8-23) H 10/28/23 08:45 Creatinine 1.0 mg/dL (0.5-0.9) H 10/28/23 08:45 GFR Calculation Not Reportable 10/28/23 08:45 Glucose 128 mg/dL (65-115) H 10/28/23 08:45 Calculated Osmolality 290 mOsm/kg (285-295) 10/28/23 08:45 Calcium 9.1 mg/dL (8.5-10.5) 10/28/23 08:45 Total Bilirubin 0.4 mg/dL (0.15-1.2) 10/28/23 08:45 AST 28 U/L (0-32) 10/28/23 08:45 ALT 23 U/L (0-33) 10/28/23 08:45 Alkaline Phosphatase 167 U/L (35-105) H 10/28/23 08:45 Total Protein 6.8 g/dL (6.6-8.7) 10/28/23 08:45 Albumin 3.3 g/dL (3.5-5.2) L 10/28/23 08:45 Globulin 3.5 g/dL (1.3-4.6) 10/28/23 08:45 All radiology interpretation(s) finalized by discharge Discharge Plan Discharge Patient Disposition: Admitted As Inpatient Clinical Impression: Bowel obstruction Condition: Stable Coding Level of Care Code ED Invoice Machine Operator for Ion Peterson
--- NOTE | 2023-10-28 10:09 | CT_ITS ---
WS: [id number] CT ABDOMEN AND PELVIS WITH CONTRAST HISTORY: abd pain/vomiting blood TECHNIQUE: Imaging performed of the abdomen and pelvis with IV contrast. Single phase imaging of the abdomen. Coronal and sagittal reformats are submitted. All CT scans at [facility] use at [address] one of these dose optimization techniques: automated exposure control; mA and/or kV adjustment per patient size (includes targeted exams where dose is matched to clinical indication); or iterative re construction. IV CONTRAST: Omnipaque 350; 100 mL IV. Oral contrast: No DLP: 758.92 mGy.cm COMPARISON: 09/13/2017 Lower thorax: There are a few scattered granulomas at the lung bases which are unchanged. Motion jules fact. Heart is normal size. Small hiatal hernia. There is fluid in the distal esophagus suggesting re flux. Liver/biliary system: Normal size with no intrahepatic dilatation. Gallbladder: Gallbladder is moderately distended and hydropic. No wall thickening or fluid. There is a stone within the gallbladder lumen. There is no intrahepatic biliary dilatation. Common bile duct m easures 10 mm at the pancreatic head. Pancreas: Normal size pancreas and pancreatic duct. No adjacent inflammation. Spleen: Normal size with granulomata. Adrenal glands: Normal. Right kidney: Mild atrophy with numerous cysts of various attenuation. No obstructive pattern. Left kidney: Mild atrophy with numerous cysts of various attenuation. Would be difficult to exclude a small neoplasm. No obstruction. Aorta: Mild atherosclerosis with no aneurysm. Lymphadenopathy: None. Free fluid: None. GI tract: Stomach is markedly distended with fluid. There is high-grade small bowel obstruction with diameter of up to 4.3 cm. There are dilated and nondilated loops of bowel extending into the large ve ntral abdominal wall hernia sac. The transition point appears to be within the hernia sac. I do belie ve the transition point is identified within the RIGHT lateral most aspect of the hernia sac seen bes t on the coronal imaging. There is very mild wall thickening and enhancement which may indicate adhes ions. Additional postsurgical changes in the small bowel near the hernia orifice. Hepatic flexure als o extends into the hernia sac. Abdominal wall: Large ventral abdominal wall hernia. Pelvis: No free fluid or adenopathy within the pelvis. Uterus is not identified. Bones: Severe scoliosis and increase in the lumbar lordosis. Asymmetric disc space narrowing. Mild an terior wedging of what is probably T9. Prior RIGHT hip ORIF. IMPRESSION: 1. High-grade small bowel obstruction with a transition point being in the large ventral abdominal w all hernia sac. The hernia contains both small bowel and the hepatic flexure. 2. Marked fluid distention of the stomach with fluid extending into the esophagus. 3. No free air. 4. Postsurgical changes are noted near the orifice of the hernia sac within the small bowel. 5. Cholelithiasis. Gallbladder is mildly hydropic but there are no additional changes of acute shelia cystitis. 6. Very minimal common bile duct dilatation is probably physiologic. There are no stones or mass wit hin the duct. 7. Mild bilateral renal atrophy with numerous cysts and low-attenuation cortical masses. Differentia l would include complex cysts. Early renal cell neoplasm not excluded.
[2023-10-28 10:17] LABS: Basophils % 0.3 %; Eosinophils % 0.1 %; Hematocrit 28.4 % (36-47); Lymphocytes % 7.3 %; Mean Corpuscular HGB Conc 32.7 g/dL (30-55); Mean Corpuscular Hemoglobin 28.6 pg (27-33); Mean Corpuscular Volume 87.4 fl (85-98); Mean Platelet Volume 10.2 fL (7.4-10.4); Monocytes # 1.2 10^3/uL (0.2-0.9); Monocytes % 8.7 %; Neutrophils # 11.41 10^3/uL (1.8-7.7); Neutrophils % 82.8 %; Nucleated Red Blood Cells % 0 %; Platelet Count 863 10^3/cmm (157-399); Red Blood Count 3.25 10^6/uL (3.85-5.65); Red Cell Distribution Width 13.7 % (12.1-15.1); White Blood Count 13.77 10^3/uL (3.29-11.43)
[2023-10-28 10:36] LABS: Alanine Aminotransferase 23 U/L (0-33); Albumin Level 3.3 g/dL (3.5-5.2); Alkaline Phosphatase 167 U/L (35-105); Aspartate Amino Transferase 28 U/L (0-32); Blood Urea Nitrogen 37 mg/dL (8-23); Calcium 9.1 mg/dL (8.5-10.5); Carbon Dioxide 28 mmol/L (22-29); Chloride 93 mmol/L (98-107); Globulin 3.5 g/dL (1.3-4.6); Glucose 128 mg/dL (65-115); Osmolality Calculated 290 mOsm/kg (285-295); Sodium 135 mmol/L (136-145); Total Bilirubin 0.4 mg/dL (0.15-1.2); Total Protein 6.8 g/dL (6.6-8.7)
[2023-10-28 10:41] LABS: Anion Gap 18.4 (5-19); Potassium 4.4 mmol/L (3.5-5.1)
[2023-10-28] MEDS: pantoprazole 40 mg SDV IVP ×2 (10:54→21:04)
[2023-10-28 11:17] LABS: INR 1.09 (0.8-1.2)
[2023-10-28 11:18] LABS: Partial Thromboplastin Time 39.9 SECONDS (23.9-36.7)
[2023-10-28] MEDS: iohexol 350 mg/mL 500 mL Btl (per mL) IV (11:41)
--- NOTE | 2023-10-28 13:54 | XRR_ITS ---
PROCEDURE INFORMATION: Exam: XR Abdomen Exam date and time: 10/28/2023 3:11 PM Age: 72 years old Clinical indication: Device placement; Gi device; Nasogastric tube; Additional info: Post ng tube placement verification TECHNIQUE: Imaging protocol: Radiologic exam of the abdomen. Views: Frontal supine view of the abdomen. 1 View. COMPARISON: CT abdomen pelvis w con* [id number] 10/28/2023 11:30 AM FINDINGS: Tubes, catheters and devices: Nasogastric tube extends into the mid stomach. Nonspecific bowel gas pattern. Residual contrast material in urinary bladder. Gastrointestinal tract: See Tubes, catheters and devices finding. Bones/joints: Right hip replacement. Osteopenia. Thoracolumbar spine curvature. XR/XR abdomen 1V* [id number] IMPRESSION: NG tube in stomach.
--- NOTE | 2023-10-28 15:45 | PC.NURSE ---
UPON ENTERING THE PATIENT ROOM, PATIENT HAD ATTEMPTED TO PULL OUT NG TUBE. THE TAPE SECURING THE NG TUBE WAS REMOVED AND THE TUBE WAS DISPLACED OUT OF THE PATIENT'S NOSE. ABOUT 4 INCHES OF THE NG TUBE HAD BEEN DISPLACED. PATIENT CONTINUED TO STATE IT HURTS. HELP. GET THIS OUT OF MY NOSE. NG TUBE PLACED BACK INTO CORRECT SPOT BY THIS NURSE. DR BURNETT GAVE A VERBAL ORDER FOR SOFT RESTRAINTS IN ORDER TO PREVENT FURTHER INJURY DUE TO THE NECESSITY OF THE NG TUBE. PATIENT PLACED IN SOFT RESTRAINTS. OB NURSE AT BEDSIDE A SITTER. NO FURTHER CONCERNS AT THIS TIME.
--- NOTE | 2023-10-28 17:02 | P.HP_ITS ---
Providers/Chief Complaint 2 Chief Complaint: coffee ground emesis History of Present Illness Ruby Lee is a 72 year old female with dementia, recently had hip surgery, presented from [facility] for chief complaint of coffee-ground emesis. Patient has been on anticoagulating agent along aspirin. She is not able provide any history, she is oriented to herself, she is very anxious stating that she has back pain and very irritated from the NG tube, Dr. Mishra evaluated and recommended conservative management with NG tube, she does have significant ventral hernia. Review of Systems 2 General: Reports: ROS unobtainable due to mental status Medications/Allergies Home Medications Medication Instructions Recorded Confirmed Last Taken Type acetaminophen 325 mg tablet 650 mg PO QID PRN Pain 10/15/23 10/28/23 Unknown History aluminum-mag hydroxide-simethicone 30 ml PO QID PRN Constipation 10/15/23 10/28/23 Unknown History 200 mg-200 mg-20 mg/5 mL oral susp amlodipine 10 mg tablet 10 mg PO QAM 10/15/23 10/28/23 10/28/23 History fluticasone propionate 50 1 spray intranasal DAILY 10/15/23 10/28/23 10/28/23 History mcg/actuation nasal spray,suspension lovastatin 40 mg tablet 40 mg PO BEDTIME 10/15/23 10/28/23 10/27/23 History magnesium hydroxide 400 mg/5 mL 30 ml PO DAILY PRN Constipation 10/15/23 10/28/23 Unknown History oral suspension (Milk of Magnesia) memantine 10 mg tablet 10 mg PO BID 10/15/23 10/28/23 10/28/23 History naloxone 2 mg/2 mL syringe kit 2 mg IM Q2M PRN Opioid Overdose 10/15/23 10/28/23 Unknown History vit no.95-ferrous 1 tab PO DAILY 10/15/23 10/28/23 10/28/23 History fumarate 28 mg-folic acid 800 mcg tablet () risperidone 0.25 mg tablet 0.25 mg PO BID 10/15/23 10/28/23 10/28/23 History sennosides 8.6 mg tablet 8.6 mg PO BID 10/15/23 10/28/23 10/28/23 History aspirin 81 mg tablet,delayed 81 mg PO DAILY 10/28/23 10/28/23 10/28/23 History release enoxaparin 30 mg/0.3 mL 30 mg SUBCUT BEDTIME 10/28/23 10/28/23 10/27/23 History subcutaneous syringe ondansetron HCl 4 mg tablet 4 mg PO Q6H PRN Nausea And Vomiting 10/28/23 10/28/23 Unknown History paroxetine HCl 10 mg tablet 10 mg PO DAILY 10/28/23 10/28/23 10/28/23 History Allergies Allergy/AdvReac Type Severity Reaction Status Date / Time gabapentin Allergy Unknown Verified 10/28/23 09:59 PFSH Acute 2 PFSH: Medical History Hip fracture Dementia Surgical History History of hip surgery Vitals/I&O/Wt Last Vital Signs Temp 97.9 F 10/28/23 09:36 Pulse 91 10/28/23 16:30 Resp 16 10/28/23 09:36 BP 110/63 10/28/23 16:30 Pulse Ox 97 10/28/23 16:30 O2 Del Method Room Air 10/28/23 16:30 Weight last 48 hrs Weight 72.575 kg Physical Exam 2 Narrative: Patient is oriented to herself She was trying to take off the tube had to put her on soft wrist restraints Currently NG tube in place with intermittent suction Distended abdomen with ventral hernia Patient is able to answer a few questions however she is very irritated Able to move her extremities Extremely dehydrated S1, S2 Currently on room air Data 10/29/23 04:24 10/29/23 04:24 A&P Assessment and plan (1) Bowel obstruction: Qualifiers: Intestinal obstruction extent: complete Intestinal obstruction type: u nspecified Qualified Code(s): K56.601 - Complete intestinal obstruction, unspecified as to cause (2) 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: (3) Coffee ground emesis: Plan Patient has bowel obstruction at ventral hernia NG tube with suction Conservative management Start IV fluids Place Fay catheter Patient is very irritable with her underlying dementia Can use naproxen as needed basis Unfortunately cannot use p.o. meds for high-grade obstruction for hypotensive episodes we can use labetalol or hydralazine Protonix IV From [place] Patient notable for history, most of the information taken from the collaterals, EMS, records and calling the senior care At baseline patient is able to eat on her own, ambulate but since her hip surgery she has been leading a sedentary lifestyle Attestations 2 Medical Necessity Statement*: Anticipating more than 2 midnights in the hospital for management of high-grade bowel obstruction Diagnoses Bowel obstruction K56.601 Intestinal obstruction extent: complete Intestinal obstruction type: unspecified 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 M97.8XXA; Z96.659 Coffee ground emesis K92.0
--- NOTE | 2023-10-28 17:18 | P.CONIM_ITS ---
Providers/Reason For Consult 2 Consulting Physician/Specialty*: Dr. Daniel Mishra, DO/General surgery Reason for Consult*: Incarcerated incisional hernia with small bowel obstruction Attending Physician: Stacia Fisher MD History of Present Illness History of Present Illness Ruby Lee is a 72 year old female, with advanced dementia who lives in a half-way, presented to the hospital due to hematemesis. HPI and review of systems are limited secondary to patient's mental status. She is unable to even track me with her eyes or answer yes when I ask if she has Ms. Lee. She has a very large incisional hernia with complete loss of domain. CT of the abdomen pelvis shows a large ventral hernia containing the hepatic flexure of the colon and multiple loops of small bowel with a transition point inside the hernia causing small bowel obstruction. Review of Systems 2 General: Reports: ROS unobtainable due to mental status Medications/Allergies Home Medications Medication Instructions Recorded Confirmed Last Taken Type acetaminophen 325 mg tablet 650 mg PO QID PRN Pain 10/15/23 10/28/23 Unknown History aluminum-mag hydroxide-simethicone 30 ml PO QID PRN Constipation 10/15/23 10/28/23 Unknown History 200 mg-200 mg-20 mg/5 mL oral susp amlodipine 10 mg tablet 10 mg PO QAM 10/15/23 10/28/23 10/28/23 History fluticasone propionate 50 1 spray intranasal DAILY 10/15/23 10/28/23 10/28/23 History mcg/actuation nasal spray,suspension lovastatin 40 mg tablet 40 mg PO BEDTIME 10/15/23 10/28/23 10/27/23 History magnesium hydroxide 400 mg/5 mL 30 ml PO DAILY PRN Constipation 10/15/23 10/28/23 Unknown History oral suspension (Milk of Magnesia) memantine 10 mg tablet 10 mg PO BID 10/15/23 10/28/23 10/28/23 History naloxone 2 mg/2 mL syringe kit 2 mg IM Q2M PRN Opioid Overdose 10/15/23 10/28/23 Unknown History vit no.95-ferrous 1 tab PO DAILY 10/15/23 10/28/23 10/28/23 History fumarate 28 mg-folic acid 800 mcg tablet () risperidone 0.25 mg tablet 0.25 mg PO BID 10/15/23 10/28/2324 History sennosides 8.6 mg tablet 8.6 mg PO BID 10/15/23 10/28/23 10/28/23 History aspirin 81 mg tablet,delayed 81 mg PO DAILY 10/28/23 10/28/23 10/28/23 History release enoxaparin 30 mg/0.3 mL 30 mg SUBCUT BEDTIME 10/28/23 10/28/23 10/27/23 History subcutaneous syringe ondansetron HCl 4 mg tablet 4 mg PO Q6H PRN Nausea And Vomiting 10/28/23 10/28/23 Unknown History paroxetine HCl 10 mg tablet 10 mg PO DAILY 10/28/23 10/28/23 10/28/23 History Allergies Allergy/AdvReac Type Severity Reaction Status Date / Time gabapentin Allergy Unknown Verified 10/28/23 09:59 Current Medications Generic Name Dose Route Start Last Admin Trade Name Freq PRN Reason Stop Dose Admin Dextrose/Sodium Chloride 1,000 mls @ 75 mls/hr 10/28/23 19:10 10/30/23 03:06 Dextrose 5%-Sod Chloride 0.9% IV 75 mls/hr .[id number] RADHA Administration Morphine Sulfate 2 mg 10/28/23 19:10 10/30/23 02:43 Morphine 4 Mg/Ml Sdv 1 Ml IVP 2 mg Q4H PRN Administration SEVERE PAIN Pantoprazole Sodium 40 mg 10/28/23 19:10 10/29/23 17:24 Pantoprazole 40 Mg Sdv IVP 40 mg BID RADHA Administration PFSH Acute 2 PFSH: Medical History Hip fracture Dementia Surgical History History of hip surgery Vitals/I&O/Wt Last Vital Signs Temp 99.2 F 10/29/23 19:21 Pulse 68 10/30/23 03:56 Resp 18 10/30/23 03:56 BP 154/75 10/30/23 03:56 Pulse Ox 96 10/30/23 03:56 O2 Del Method Nasal Cannula 10/30/23 03:56 O2 Flow Rate 0.5 10/30/23 03:56 10/29/23 10/29/23 10/30/23 14:59 22:59 06:59 Intake Total 856.25 / 856.25 598.75 / 1455.00 401.25 / 1856.25 Output Total 650 / 650 500 / 1150 Balance 856.25 / 856.25 -51.25 / 805.00 -98.75 / 706.25 Weight last 48 hrs Weight 176 lb Weight 174 lb 8 oz Weight 172 lb 8 oz Weight 160 lb Physical Exam 2 Narrative: General : Patient is well developed , she is oriented x 0 Head : Normal cephalic, a-traumatic. Ears : Pinnae and external canal are normal. Hearing is normal. Eyes : PERRLA, Sclera and injection are normal. No conjunctival discharge. Nose : Mucous membranes are without erythema. Throat : buccal mucosa is normal, gums are without significant recession or hypertrophy. Lungs : Equal chest rise bilaterally, no use of accessory muscles, trachea is midline. Cor : Rate and rhythm are normal. Abdomen : Soft, there is a very large incarcerated incisional hernia with complete loss of domain containing a significant amount of bowel contents. There is some grimace to deep palpation, no guarding or rebound Extremities : No edema, no cyanosis or clubbing, dorsalis pedis pulses are present bilaterally, non-tender to palpation of calves. Upper extremities are normal bilaterally. Back : non-tender to palpation, no CVA tenderness. Neuro : CN II - XII intact, Upper and lower extremities have equal and full strength Urinary Catheter Management: Fay: Cath Placed During This Visit: yes Reason for Continuing Indwelling Catheter: Acute Urinary Retention or Obstruction Urinary Catheter Date of Insertion: 10/28/23 Urinary Catheter Time of Insertion: 23:57 Data 10/30/23 04:56 10/30/23 04:56 A&P Assessment and plan (1) Coffee ground emesis: (2) Incarcerated incisional hernia: (3) Small bowel obstruction: Plan I spent a significant amount of time talking to her only child, her son. He reports that she chose to be DNR/DNI many years ago and that she has been living in a half-way out of contact with him for the last 8 years. I described the seriousness of the situation. Surgically repairing this hernia and releasing the small bowel obstruction inside of it, would be a very extensive surgery that would likely require multiple operations including likely resections of small bowel and possibly colon, possible ostomy, possible open abdomen, possible prolonged intubation and likely poor outcome. He explicitly said that she did not want to be put on a breathing machine. He believes that surgical intervention like that would be crucial given the patient's advanced dementia. He would like no surgical intervention and for her to be DNR/DNI but all other medical interventions he would like to pursue. N.p.o./NG tube to low intermittent wall suction IV fluids No surgical intervention Medical management per hospitalist Coding Level of Care Code 10785 Diagnoses Coffee ground emesis K92.0 Incarcerated incisional hernia K43.0 Small bowel obstruction K56.609
--- NOTE | 2023-10-28 19:02 | PC.NURSE ---
Spoke to patient's person on PHI. Patient is going to call back at around 9 pm.
[2023-10-28] MEDS: dextrose 5%-sod chloride 0.9% 1,000 ML 75 ML IV (21:04)
--- NOTE | 2023-10-28 23:58 | XRR_ITS ---
PROCEDURE INFORMATION: Exam: XR Chest Exam date and time: 10/29/2023 2:05 AM Age: 72 years old Clinical indication: Device placement; Ng tube; Additional info: Ng tube placement TECHNIQUE: Imaging protocol: Radiologic exam of the chest. Views: 1 view. COMPARISON: CR XR chest 1V [id number] 09/07/2017 2:22 PM FINDINGS: Tubes, catheters and devices: Nasogastric tube with side hole and tip in the stomach. Lungs: Numerous tiny calcified granulomas, unchanged. No focal consolidation. Pleural spaces: No large pleural effusion. No pneumothorax. Heart/Mediastinum: No cardiomegaly. Bones/joints: Scoliotic curvature of the spine. No acute osseous abnormality identified. XR/XR chest 1V portable [id number] IMPRESSION: Nasogastric tube in satisfactory position.
--- NOTE | 2023-10-28 23:59 | PC.NURSE ---
Patient pulled NG tube out of right nare with soft wrist restraints. One-on-one sitter placed on patient. NG placed to left nare. X-ray ordered to verify placement.
[2023-10-29] VITALS (18 sets, daily range): BP systolic 107–154; BP diastolic 62–80; PULSE 62–75; RESP 16–22; TEMP 36.4–37.3; O2SAT 89–99
[2023-10-29] MEDS: morphine 4 mg/mL SDV 1 mL 2 MG IVP ×5 (02:56→22:27)
[2023-10-29 04:55] LABS: Basophils % 0.4 %; Eosinophils # 0.1 10^3/uL (0.0-0.8); Eosinophils % 1.6 %; Hematocrit 23.5 % (36-47); Lymphocytes # 1.6 10^3/uL (0.8-4.8); Lymphocytes % 19.1 %; Mean Corpuscular HGB Conc 31.9 g/dL (30-55); Mean Corpuscular Hemoglobin 27.9 pg (27-33); Mean Corpuscular Volume 87.4 fl (85-98); Mean Platelet Volume 9.4 fL (7.4-10.4); Monocytes # 1.1 10^3/uL (0.2-0.9); Monocytes % 12.9 %; Neutrophils # 5.29 10^3/uL (1.8-7.7); Neutrophils % 64.9 %; Nucleated Red Blood Cells % 0 %; Platelet Count 674 10^3/cmm (157-399); Red Blood Count 2.69 10^6/uL (3.85-5.65); Red Cell Distribution Width 14.1 % (12.1-15.1); White Blood Count 8.15 10^3/uL (3.29-11.43)
[2023-10-29 05:18] LABS: Anion Gap 13.9 (5-19); Blood Urea Nitrogen 42 mg/dL (8-23); Calcium 7.6 mg/dL (8.5-10.5); Carbon Dioxide 27 mmol/L (22-29); Chloride 102 mmol/L (98-107); Glucose 113 mg/dL (65-115); Magnesium 2.2 mg/dL (1.7-2.3); Osmolality Calculated 299 mOsm/kg (285-295); Potassium 3.9 mmol/L (3.5-5.1); Sodium 139 mmol/L (136-145)
[2023-10-29 07:31] LABS: Add Urine Microscopic? NO; Charge for UA Resulting for Rev
[2023-10-29] MEDS: dextrose 5%-sod chloride 0.9% 1,000 ML 75 ML IV (07:49)
[2023-10-29] MEDS: pantoprazole 40 mg SDV IVP ×2 (07:49→17:24)
[2023-10-29 08:27] LABS: Bilirubin Urine Neg (Negative); Blood Urine Neg (Negative); Glucose Urine UA Norm (Normal); Ketones Urine Negative (Negative); Leukocyte Esterase Urine Negative (Negative); Nitrate Urine Negative (Negative); Protein Urine Neg (Negative); Urine Appearance Clear (CLEAR); Urine Color Yellow (Yellow); Urobilinogen Urine Norm (Negative); pH Urine 5 (5-7)
--- NOTE | 2023-10-29 09:57 | PC.CHAP ---
Pastoral Care Encounter/Spiritual Assessment Type of Contact [] Declined salvage repairer visit [] Patient/Family/Request visit [] Outpatient visit [] Follow-up visit [] Physician referral [] Code/Alert [] Routine visit [] Staff referral [] Actively dying [x] Patient sleeping [] Family support [] [] Out of room [] Palliative care [] [] Receiving care in room [] Pre-surgical visit [] Trauma [] Long length of stay [] ICU visit [] Other: Relational/Emotional Strength [] Patient feels connected with others/family/visitors/staff [] Distress [] Loneliness/isolation [] Abandonment Spirituality of Patient [] Person of Bisi [] Attends Yazidism of their Bisi [] Believes in Prayer [] Reads Bible or Methodist materials [] There are Spiritual issues to be addressed Disaster Response Director Interventions [] Prayer [] Active listening [] Non-anxious presence [] Spiritual/emotional support [] Crisis/trauma care [] Spiritual counseling [] Bereavement support [] Provided bereavement packet [] Provided Bible/devotional materials [] Provided toy/stuffed animal, coloring book to patient or family member [] Provided Communion [] Anointing/[place] [] Salvation [] Completed spiritual assessment [] Other: Impact on Illness or Injury [] Angry [] Fearful [] Anxious [] Often cries [] Exhaustion [] Unable to work [] Unable to attend mu-ism [] Unable to walk/stand [] Unable to read [] Unable to drive [] Unable to eat/drink [] Unable to sleep [] Unable to be with family [] Patient intubated [] Other: Summary Time spent with patient
--- NOTE | 2023-10-29 11:21 | P.PN_ITS ---
Subjective 2 Subjective: Will get 1 unit PRBC Spoke with her son Rancho Lee [phone] Patient still has NG, chills oriented to herself Requiring supervision Vitals/I&O/Wt Last Vital Signs Temp 97.8 F 10/29/23 11:07 Pulse 73 10/29/23 11:07 Resp 20 H 10/29/23 11:07 BP 130/71 10/29/23 11:07 Pulse Ox 92 10/29/23 11:07 O2 Del Method Room Air 10/29/23 08:10 10/28/23 10/29/23 10/29/23 22:59 06:59 14:59 Intake Total 806.25 / 806.25 Output Total 475 / 475 Balance -475 / -475 806.25 / 806.25 Weight last 48 hrs Weight 79.152 kg Weight 78.245 kg Weight 72.575 kg Physical Exam 2 Narrative: Awake Oriented to self Able to move extremities Dehydrated Ventral hernia without any active pain Fay catheter in place GCS 15 S1, S2 Urinary Catheter Management: Fay: Cath Placed During This Visit: yes Reason for Continuing Indwelling Catheter: Assist Healing of Perineal & Sacral Wounds- Incontinent Patients Urinary Catheter Date of Insertion: 10/28/23 Urinary Catheter Time of Insertion: 23:57 Data 10/29/23 04:24 10/29/23 04:24 A&P Assessment and plan (1) Coffee ground emesis: (2) Bowel obstruction: Qualifiers: Intestinal obstruction extent: complete Intestinal obstruction type: u nspecified Qualified Code(s): K56.601 - Complete intestinal obstruction, unspecified as to cause (3) Acute on chronic anemia: Plan Acute on chronic anemia No active coffee-ground emesis I do not see any coffee-ground content in the container NG to suction Will give 1 unit PBC Spoke with her son Patient is full code As per the [facility] patient's quality of life has suffered significantly since her hip surgery Dementia with sundowning Continue Protonix DVT prophylaxis SCDs Continue D5 normal saline N.p.o. Will follow-up with Dr. Mishra's recommendations Attestations 2 Medical Necessity Statement*: Continue treatment Diagnoses Coffee ground emesis K92.0 Bowel obstruction K56.601 Intestinal obstruction extent: complete Intestinal obstruction type: unspecified Acute on chronic anemia D64.9
--- NOTE | 2023-10-29 11:26 | P.PN_ITS ---
Subjective 2 Subjective: Patient seen and examined. She was resting when I saw her and did not wake with gentle arousal or examination of her abdomen. Vitals/I&O/Wt Last Vital Signs Temp 99.2 F 10/29/23 19:21 Pulse 68 10/30/23 03:56 Resp 18 10/30/23 03:56 BP 154/75 10/30/23 03:56 Pulse Ox 96 10/30/23 03:56 O2 Del Method Nasal Cannula 10/30/23 03:56 O2 Flow Rate 0.5 10/30/23 03:56 10/29/23 10/29/23 10/30/23 14:59 22:59 06:59 Intake Total 856.25 / 856.25 598.75 / 1455.00 401.25 / 1856.25 Output Total 650 / 650 500 / 1150 Balance 856.25 / 856.25 -51.25 / 805.00 -98.75 / 706.25 Weight last 48 hrs Weight 176 lb Weight 174 lb 8 oz Weight 172 lb 8 oz Weight 160 lb Physical Exam 2 Narrative: General: No acute distress, sleeping/somnolent at this time Abdomen: Soft, mildly distended, no grimace to palpation Urinary Catheter Management: Fay: Cath Placed During This Visit: yes Reason for Continuing Indwelling Catheter: Acute Urinary Retention or Obstruction Urinary Catheter Date of Insertion: 10/28/23 Urinary Catheter Time of Insertion: 23:57 Data 10/30/23 04:56 10/30/23 04:56 A&P Assessment and plan (1) Coffee ground emesis: (2) Incarcerated incisional hernia: (3) Small bowel obstruction: Plan I spent a significant amount of time talking to her only child, her son. He reports that she chose to be DNR/DNI many years ago and that she has been living in a prison out of contact with him for the last 8 years. I described the seriousness of the situation. Surgically repairing this hernia and releasing the small bowel obstruction inside of it, would be a very extensive surgery that would likely require multiple operations including likely resections of small bowel and possibly colon, possible ostomy, possible open abdomen, possible prolonged intubation and likely poor outcome. He explicitly said that she did not want to be put on a breathing machine. He believes that surgical intervention like that would be crucial given the patient's advanced dementia. He would like no surgical intervention and for her to be DNR/DNI but all other medical interventions he would like to pursue. N.p.o./NG tube to low intermittent wall suction IV fluids No surgical intervention Medical management per hospitalist Attestations 2 Medical Necessity Statement*: Per primary Coding Level of Care Code 62533 Diagnoses Coffee ground emesis K92.0 Incarcerated incisional hernia K43.0 Small bowel obstruction K56.609
[2023-10-29 12:04] LABS: Iron 27 ug/dL (37-145); Percent Saturation 15.6 % (20-50); Total Iron Binding Capacity 172 mcg/dl; Unsaturated Iron Binding 145 ug/dL (112-347)
[2023-10-29 12:20] LABS: Vitamin B12 423 pg/mL (232-1245)
--- NOTE | 2023-10-29 13:55 | PC.NURSE ---
Unit of PRBC's complete. VSS. Tolerated well.
[2023-10-30] VITALS (13 sets, daily range): BP systolic 110–169; BP diastolic 50–75; PULSE 64–81; RESP 16–22; TEMP 36.9–37.6; O2SAT 92–96
[2023-10-30] MEDS: morphine 4 mg/mL SDV 1 mL 2 MG IVP ×5 (02:43→22:36)
[2023-10-30] MEDS: dextrose 5%-sod chloride 0.9% 1,000 ML 75 ML IV ×2 (03:06→14:32)
[2023-10-30 05:03] LABS: Basophils % 0.4 %; Eosinophils # 0.3 10^3/uL (0.0-0.8); Eosinophils % 3.1 %; Hematocrit 25.8 % (36-47); Lymphocytes # 1.5 10^3/uL (0.8-4.8); Lymphocytes % 15.2 %; Mean Corpuscular HGB Conc 31.4 g/dL (30-55); Mean Corpuscular Hemoglobin 27.5 pg (27-33); Mean Corpuscular Volume 87.5 fl (85-98); Mean Platelet Volume 9.3 fL (7.4-10.4); Monocytes # 0.9 10^3/uL (0.2-0.9); Monocytes % 9.2 %; Neutrophils # 6.71 10^3/uL (1.8-7.7); Neutrophils % 70.3 %; Nucleated Red Blood Cells % 0 %; Platelet Count 474 10^3/cmm (157-399); Red Blood Count 2.95 10^6/uL (3.85-5.65); Red Cell Distribution Width 15.6 % (12.1-15.1); White Blood Count 9.55 10^3/uL (3.29-11.43)
[2023-10-30 05:20] LABS: Anion Gap 11.6 (5-19); Blood Urea Nitrogen 23 mg/dL (8-23); Calcium 7.9 mg/dL (8.5-10.5); Carbon Dioxide 26 mmol/L (22-29); Chloride 108 mmol/L (98-107); Glucose 110 mg/dL (65-115); Osmolality Calculated 298 mOsm/kg (285-295); Potassium 3.6 mmol/L (3.5-5.1); Sodium 142 mmol/L (136-145)
[2023-10-30] MEDS: pantoprazole 40 mg SDV IVP ×2 (08:28→17:05)
--- NOTE | 2023-10-30 09:54 | P.PN_ITS ---
Subjective 2 Subjective: This morning patient received morphine She still has NG as per the nursing report 150 ml was noticed this morning Tried to call her son again it is going to voicemail tried 3 times Vitals/I&O/Wt Last Vital Signs Temp 98.7 F 10/30/23 07:58 Pulse 75 10/30/23 07:58 Resp 18 10/30/23 08:28 BP 169/72 10/30/23 07:58 Pulse Ox 94 10/30/23 07:58 O2 Del Method Nasal Cannula 10/30/23 07:58 O2 Flow Rate 0.5 10/30/23 03:56 10/29/23 10/30/23 10/30/23 22:59 06:59 14:59 Intake Total 598.75 / 1455.00 401.25 / 1856.25 Output Total 650 / 650 500 / 1150 Balance -51.25 / 805.00 -98.75 / 706.25 Weight last 48 hrs Weight 79.832 kg Weight 79.152 kg Weight 78.245 kg Physical Exam 2 Narrative: Patient is resting comfortably NG in place Requiring one-to-one supervision Fay catheter draining dilute colored urine Urinary Catheter Management: Fay: Cath Placed During This Visit: yes Reason for Continuing Indwelling Catheter: Acute Urinary Retention or Obstruction Urinary Catheter Date of Insertion: 10/28/23 Urinary Catheter Time of Insertion: 23:57 Data 10/30/23 04:56 10/30/23 04:56 A&P Assessment and plan (1) Coffee ground emesis: (2) Bowel obstruction: Qualifiers: Intestinal obstruction extent: complete Intestinal obstruction type: u nspecified Qualified Code(s): K56.601 - Complete intestinal obstruction, unspecified as to cause (3) Small bowel obstruction: (4) Incarcerated incisional hernia: (5) Acute on chronic anemia: Plan Hemoglobin remained stable after 1 unit PRBC Hemodynamically stable NG tube with 150 mL drainage noted this morning Will touch with Dr. Mishra to see if there is plan to clamp her tube No BM yet Patient will not be able to report passage of flatus considering her dementia No severe electrolyte imbalance noted She is afebrile CODE STATUS has been changed to DNR/DNI after discussing with her son At this point concern is related to nutrition if her bowel obstruction gets worse we might not be able to feed her orally, currently she is on conservative management plan, I will repeat KUB today to see if there is any improvement in signs of obstruction Getting IV antihypertensive regimen for now Attestations 2 Medical Necessity Statement*: Continue medical management Diagnoses Coffee ground emesis K92.0 Bowel obstruction K56.601 Intestinal obstruction extent: complete Intestinal obstruction type: unspecified Small bowel obstruction K56.609 Incarcerated incisional hernia K43.0 Acute on chronic anemia D64.9
--- NOTE | 2023-10-30 10:00 | XRR_ITS ---
PROCEDURE INFORMATION: Exam: XR Abdomen Exam date and time: 10/30/2023 10:19 AM Age: 72 years old Clinical indication: Condition or disease; Intestinal condition; Obstruction; Additional info: Sbo TECHNIQUE: Imaging protocol: Radiologic exam of the abdomen. Views: Frontal supine view of the abdomen. 1 View. COMPARISON: CR XR abdomen 1V* [id number] 10/28/2023 3:11 PM FINDINGS: Tubes, catheters and devices: Tip of the NG tube is in the gastric fundus. Gastrointestinal tract: Persistent mechanical small bowel obstruction. No obvious free air on this plain radiograph taken with the patient in the supine position. Bones/joints: Unchanged scoliosis and right hip arthroplasty. XR/XR KUB portable [id number] IMPRESSION: Persistent mechanical small bowel obstruction.
--- NOTE | 2023-10-30 11:56 | PC.SOCIAL ---
Pg 2 IMM Explained to pt's family, Pg 2 IMM. No questions voiced. Provided pt a copy. Initialed, dated, & timed a copy & placed in chart.
[2023-10-30] MEDS: HYDROmorphone 1 mg/mL INJ 1 mL 0.4 MG IVP ×2 (14:57→21:09)
[2023-10-31] VITALS (8 sets, daily range): BP systolic 107–158; BP diastolic 48–88; PULSE 60–78; RESP 16–18; TEMP 36.7–38.8; O2SAT 94–96
[2023-10-31] MEDS: dextrose 5%-sod chloride 0.9% 1,000 ML 75 ML IV ×2 (02:35→17:19)
[2023-10-31 05:39] LABS: Basophils % 0.3 %; Eosinophils # 0.2 10^3/uL (0.0-0.8); Eosinophils % 1.1 %; Hematocrit 27.9 % (36-47); Lymphocytes # 1.3 10^3/uL (0.8-4.8); Lymphocytes % 9.5 %; Mean Corpuscular HGB Conc 30.8 g/dL (30-55); Mean Corpuscular Hemoglobin 27.6 pg (27-33); Mean Corpuscular Volume 89.4 fl (85-98); Mean Platelet Volume 9.7 fL (7.4-10.4); Monocytes # 1.1 10^3/uL (0.2-0.9); Monocytes % 8.1 %; Neutrophils # 10.72 10^3/uL (1.8-7.7); Neutrophils % 79.1 %; Nucleated Red Blood Cells % 0 %; Platelet Count 576 10^3/cmm (157-399); Red Blood Count 3.12 10^6/uL (3.85-5.65); Red Cell Distribution Width 15.2 % (12.1-15.1); White Blood Count 13.54 10^3/uL (3.29-11.43)
[2023-10-31 06:05] LABS: Anion Gap 13.2 (5-19); Blood Urea Nitrogen 13 mg/dL (8-23); Calcium 8.2 mg/dL (8.5-10.5); Carbon Dioxide 23 mmol/L (22-29); Chloride 109 mmol/L (98-107); Glucose 104 mg/dL (65-115); Osmolality Calculated 294 mOsm/kg (285-295); Potassium 3.2 mmol/L (3.5-5.1); Sodium 142 mmol/L (136-145)
--- NOTE | 2023-10-31 08:12 | XR_ITS ---
WS: [id number] Portable AP upright chest, 10/31/2023 Clinical Data: fever Comparison: Portable chest, 10/29/2023 Findings: No nodules, masses or effusions are seen. The heart is normal. The pulmonary vascularity is not increased. No pneumonia or pneumothorax is seen. The aortic arch and descending thoracic aorta s how tortuosity. The nasogastric tube appears to end in the body of the stomach. There are calcified g ranulomas throughout the lungs. There is a dextroscoliosis of the lower thoracic and upper lumbar spi herb. Impression: 1. Atherosclerosis and old granulomatous disease. 2. Nasogastric tube ends in the stomach.
[2023-10-31] MEDS: piperacillin-tazobactam 3.375 GM in sodium chloride 0.9% (plus) 50 ML IV ×2 (10:02→17:19)
[2023-10-31] MEDS: pantoprazole 40 mg SDV IVP ×2 (10:03→17:19)
[2023-10-31] MEDS: morphine 4 mg/mL SDV 1 mL 2 MG IVP (10:10)
--- NOTE | 2023-10-31 10:18 | PC.CHAP ---
Pastoral Care Encounter/Spiritual Assessment Type of Contact [] Declined wellness program administrator visit [] Patient/Family/Request visit [] Outpatient visit [] Follow-up visit [] Physician referral [] Code/Alert [x] Routine visit [] Staff referral [] Actively dying [] Patient sleeping [] Family support [] [] Out of room [] Palliative care [] [] Receiving care in room [] Pre-surgical visit [] Trauma [] Long length of stay [] ICU visit [] Other: Relational/Emotional Strength [] Patient feels connected with others/family/visitors/staff [x] Distress [] Loneliness/isolation [] Abandonment Spirituality of Patient [] Person of Bisi [] Attends Uatsdin of their Bisi [] Believes in Prayer [] Reads Bible or Episcopal materials [] There are Spiritual issues to be addressed Rec Therapist Interventions [] Prayer [] Active listening [] Non-anxious presence [] Spiritual/emotional support [] Crisis/trauma care [] Spiritual counseling [] Bereavement support [] Provided bereavement packet [] Provided Bible/devotional materials [] Provided toy/stuffed animal, coloring book to patient or family member [] Provided Communion [] Anointing/[place] [] Salvation [] Completed spiritual assessment [] Other: Impact on Illness or Injury [] Angry [] Fearful [] Anxious [] Often cries [] Exhaustion [] Unable to work [] Unable to attend buddhist [] Unable to walk/stand [] Unable to read [] Unable to drive [] Unable to eat/drink [] Unable to sleep [] Unable to be with family [] Patient intubated [] Other: Summary under staff care Time spent with patient 5 mins
--- NOTE | 2023-10-31 10:30 | P.PN_ITS ---
Subjective 2 Subjective: Patient is still very confused trying to pull her NG and Fay catheter Requiring one-to-one supervision and verbal redirection She is not complaining of any active complaints NG in place Afebrile No bowel movement Bowel Sounds are sluggish Vitals/I&O/Wt Last Vital Signs Temp 100.2 F H 10/31/23 07:39 Pulse 67 10/31/23 09:29 Resp 16 10/31/23 09:29 BP 145/71 10/31/23 07:39 Pulse Ox 94 10/31/23 09:29 O2 Del Method Nasal Cannula 10/31/23 07:39 O2 Flow Rate 1 10/31/23 00:20 10/30/23 10/31/23 10/31/23 22:59 06:59 14:59 Intake Total 903.75 / 1761.25 Output Total 700 / 700 1100 / 1800 Balance -700 / 157.5 -196.25 / -38.75 Weight last 48 hrs Weight 79.832 kg Weight 79.832 kg Physical Exam 2 Narrative: Abdomen less distended as compared to yesterday Bowel sounds are still sluggish Patient does not wince in pain when I palpate her abdomen Currently NG to low intermittent suction She does have dried blood left knee Neuroexam limited Clinical looks dehydrated Urinary Catheter Management: Fay: Cath Placed During This Visit: yes Reason for Continuing Indwelling Catheter: Other Urinary Catheter Date of Insertion: 10/28/23 Urinary Catheter Time of Insertion: 23:57 Data 10/31/23 04:46 10/31/23 04:46 A&P Assessment and plan (1) Coffee ground emesis: (2) Bowel obstruction: Qualifiers: Intestinal obstruction extent: complete Intestinal obstruction type: u nspecified Qualified Code(s): K56.601 - Complete intestinal obstruction, unspecified as to cause (3) Small bowel obstruction: (4) Incarcerated incisional hernia: (5) Acute on chronic anemia: (6) 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: Plan No significant improvement since her admission Mechanical bowel obstruction Appreciate general surgery recommendations Plan to discharge her on comfort care if we are not able to achieve bowel movement with conservative management At this point patient is staying dehydrated with confusion It is hard to manage her without one-to-one supervision Patient's CODE STATUS has been changed to DNR/DNI Will speak with her son to give him an update today Continue IV fluids and antibiotics, antibiotics added for worsening of leukocytosis, requested chest x-ray patient is spiking fever as well Service post 1 unit PRBC No recurrence of coffee-ground emesis Attestations 2 Medical Necessity Statement*: Guarded prognosis Diagnoses Coffee ground emesis K92.0 Bowel obstruction K56.601 Intestinal obstruction extent: complete Intestinal obstruction type: unspecified Small bowel obstruction K56.609 Incarcerated incisional hernia K43.0 Acute on chronic anemia D64.9 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 M97.8XXA; Z96.659
--- NOTE | 2023-10-31 11:16 | P.PN_ITS ---
Subjective 2 Subjective: Patient seen and examined. She is moaning about pain in her abdomen today Vitals/I&O/Wt Last Vital Signs Temp 98.0 F 11/01/23 07:33 Pulse 52 L 11/01/23 09:55 Resp 16 11/01/23 09:55 BP 144/75 11/01/23 07:33 Pulse Ox 96 11/01/23 09:55 O2 Del Method Nasal Cannula 11/01/23 09:55 O2 Flow Rate 1 11/01/23 09:55 10/31/23 11/01/23 11/01/23 22:59 06:59 14:59 Intake Total 1155 / 1205 1000 / 2205 50 / 50 Output Total 950 / 950 50 / 1000 Balance 205 / 255 950 / 1205 50 / 50 Weight last 48 hrs Weight 168 lb 8 oz Weight 176 lb Physical Exam 2 Narrative: General: No acute distress, oriented x 0 Abdomen: Soft, mildly distended, mild diffuse tenderness to palpation Urinary Catheter Management: Fay: Cath Placed During This Visit: yes Reason for Continuing Indwelling Catheter: Other Urinary Catheter Date of Insertion: 10/28/23 Urinary Catheter Time of Insertion: 23:57 Data 10/31/23 04:46 10/31/23 04:46 A&P Assessment and plan (1) Coffee ground emesis: (2) Incarcerated incisional hernia: (3) Small bowel obstruction: Plan I spent a significant amount of time talking to her only child, her son. He reports that she chose to be DNR/DNI many years ago and that she has been living in a senior care out of contact with him for the last 8 years. I described the seriousness of the situation. Surgically repairing this hernia and releasing the small bowel obstruction inside of it, would be a very extensive surgery that would likely require multiple operations including likely resections of small bowel and possibly colon, possible ostomy, possible open abdomen, possible prolonged intubation and likely poor outcome. He explicitly said that she did not want to be put on a breathing machine. He believes that surgical intervention like that would be crucial given the patient's advanced dementia. He would like no surgical intervention and for her to be DNR/DNI but all other medical interventions he would like to pursue. N.p.o./NG tube to low intermittent wall suction IV fluids No surgical intervention If her obstruction is not relieved by Saturday, her son would like her made comfort care Medical management per hospitalist Attestations 2 Medical Necessity Statement*: Per primary Coding Level of Care Code 61155 Diagnoses Coffee ground emesis K92.0 Incarcerated incisional hernia K43.0 Small bowel obstruction K56.609
[2023-10-31] MEDS: lidocaine 1% 5 ML in potassium chloride premix 100 ML 25 ML IV (13:39)
[2023-10-31] MEDS: ketorolac 30 mg/mL INJ 15 MG IVP (18:30)
[2023-11-01] VITALS (9 sets, daily range): BP systolic 133–160; BP diastolic 59–81; PULSE 52–67; RESP 16–20; TEMP 36.6–36.9; O2SAT 96–98
[2023-11-01] MEDS: HYDROmorphone 1 mg/mL INJ 1 mL 0.4 MG IVP ×2 (00:37→08:28)
[2023-11-01] MEDS: piperacillin-tazobactam 3.375 GM in sodium chloride 0.9% (plus) 50 ML IV ×2 (02:57→08:31)
[2023-11-01] MEDS: morphine 4 mg/mL SDV 1 mL 2 MG IVP (05:23)
[2023-11-01] MEDS: dextrose 5%-sod chloride 0.9% 1,000 ML 75 ML IV (06:43)
[2023-11-01] MEDS: pantoprazole 40 mg SDV IVP (08:30)
--- NOTE | 2023-11-01 11:19 | P.PN_ITS ---
Subjective 2 Subjective: Patient seen and examined. She is moaning about pain in her abdomen today. Still no BM and no evidence of flatus Vitals/I&O/Wt Last Vital Signs Temp 98.0 F 11/01/23 07:33 Pulse 52 L 11/01/23 09:55 Resp 16 11/01/23 09:55 BP 144/75 11/01/23 07:33 Pulse Ox 96 11/01/23 09:55 O2 Del Method Nasal Cannula 11/01/23 09:55 O2 Flow Rate 1 11/01/23 09:55 10/31/23 11/01/23 11/01/23 22:59 06:59 14:59 Intake Total 1155 / 1205 1000 / 2205 50 / 50 Output Total 950 / 950 50 / 1000 Balance 205 / 255 950 / 1205 50 / 50 Weight last 48 hrs Weight 168 lb 8 oz Weight 176 lb Physical Exam 2 Narrative: General: No acute distress, oriented x 0 Abdomen: Soft, mildly distended, mild diffuse tenderness to palpation Urinary Catheter Management: Fay: Cath Placed During This Visit: yes Reason for Continuing Indwelling Catheter: Other Urinary Catheter Date of Insertion: 10/28/23 Urinary Catheter Time of Insertion: 23:57 Data 10/31/23 04:46 10/31/23 04:46 A&P Assessment and plan (1) Coffee ground emesis: (2) Incarcerated incisional hernia: (3) Small bowel obstruction: Plan I spent a significant amount of time talking to her only child, her son. He reports that she chose to be DNR/DNI many years ago and that she has been living in a long-term out of contact with him for the last 8 years. I described the seriousness of the situation. Surgically repairing this hernia and releasing the small bowel obstruction inside of it, would be a very extensive surgery that would likely require multiple operations including likely resections of small bowel and possibly colon, possible ostomy, possible open abdomen, possible prolonged intubation and likely poor outcome. He explicitly said that she did not want to be put on a breathing machine. He believes that surgical intervention like that would be crucial given the patient's advanced dementia. He would like no surgical intervention and would now like her to be made comfort care Comfort care DC NG tube Regular diet No surgical intervention Medical management per hospitalist General surgery will sign off. Please reconsult if the need arises Attestations 2 Medical Necessity Statement*: Per primary Coding Level of Care Code 75574 Diagnoses Coffee ground emesis K92.0 Incarcerated incisional hernia K43.0 Small bowel obstruction K56.609
--- NOTE | 2023-11-01 11:35 | PM.DCS ---
Discharge Providers Date of Admission: 10/28/23 15:49 Date of Discharge: November 01, 2023 Attending Provider at Admission: Stacia Fisher MD Attending Provider at Discharge: Stacia Fisher MD Diagnoses at Discharge Discharge Diagnosis (1) Coffee ground emesis: Status: Acute (2) Incarcerated incisional hernia: Status: Acute (3) Small bowel obstruction: Status: Acute Reason for Visit Reason for Visit: coffee ground emesis Hospital Course Hospital Course 72-year-old female who was admitted for management evaluation of mechanical SBO related to her complex anatomy due to ventral hernia incarceration, NG tube was placed, multiple family meetings conducted with the son, Dr. Mishra and son both decided to manage conservatively, patient did not improve in next 72 hours, she is getting dehydrated, son does not want PEG tube placement, son has decided to opt for hospice at the time of discharge, unfortunately patient will not get significant hydration she does have left knee effusion with dried blood. Patient is only oriented to herself, not able to communicate at all. Physical Exam Narrative: Significant other dehydration Abdomen is tender to palpate today Left knee is also tender Effusion with petechiae Urinary Catheter Management: Fay: Cath Placed During This Visit: yes Reason for Continuing Indwelling Catheter: Other Urinary Catheter Date of Insertion: 10/28/23 Urinary Catheter Time of Insertion: 23:57 Discharge Data Studies Completed and Pending Completed Studies During Hospitalization Category Date Time Status CT abdomen pelvis w con* [id number] Stat Cat Scan 10/28/23 10:09 Completed CXRP [XR chest 1V portable [id number]] Routine Exams 10/28/23 23:58 Completed XR KUB portable [id number] Routine Exams 10/30/23 10:00 Completed XR abdomen 1V* [id number] Stat Exams 10/28/23 13:54 Completed XR chest 1V portable [id number] Routine Exams 10/31/23 08:12 Completed Radiology Impressions Abdomen X-Ray 10/28/23 13:54 IMPRESSION: NG tube in stomach. KUB X-Ray 10/30/23 10:00 IMPRESSION: Persistent mechanical small bowel obstruction. Laboratory Results WBC 13.54 10^3/uL (3.29-11.43) H 10/31/23 04:46 RBC 3.12 10^6/uL (3.85-5.65) L 10/31/23 04:46 Hgb 8.60 g/dL (11.27-16.99) L 10/31/23 04:46 Hct 27.9 % (36-47) L 10/31/23 04:46 MCV 89.4 fl (85-98) 10/31/23 04:46 MCH 27.6 pg (27-33) 10/31/23 04:46 MCHC 30.8 g/dL (30-55) 10/31/23 04:46 RDW 15.2 % (12.1-15.1) H 10/31/23 04:46 Plt Count 576 10^3/cmm (157-399) H 10/31/23 04:46 MPV 9.7 fL (7.4-10.4) 10/31/23 04:46 Neut % (Auto) 79.1 % 10/31/23 04:46 Lymph % (Auto) 9.5 % 10/31/23 04:46 [place] % (Auto) 8.1 % 10/31/23 04:46 Eos % (Auto) 1.1 % 10/31/23 04:46 Baso % (Auto) 0.3 % 10/31/23 04:46 Neut # (Auto) 10.72 10^3/uL (1.8-7.7) H 10/31/23 04:46 Lymph # (Auto) 1.3 10^3/uL (0.8-4.8) 10/31/23 04:46 [place] # (Auto) 1.1 10^3/uL (0.2-0.9) H 10/31/23 04:46 Eos # (Auto) 0.2 10^3/uL (0.0-0.8) 10/31/23 04:46 Baso # (Auto) 0.0 10^3/uL (0.0-0.1) 10/31/23 04:46 Nucleated RBC % (auto) 0 % 10/31/23 04:46 Nucleated RBCs # 0.0 /100WBC 10/31/23 04:46 PT 14.50 SECONDS (12.1-14.9) 10/28/23 10:45 INR 1.09 (0.8-1.2) 10/28/23 10:45 APTT 39.9 SECONDS (23.9-36.7) H 10/28/23 10:45 Sodium 142 mmol/L (136-145) 10/31/23 04:46 Potassium 3.2 mmol/L (3.5-5.1) L 10/31/23 04:46 Chloride 109 mmol/L (98-107) H 10/31/23 04:46 Carbon Dioxide 23 mmol/L (22-29) 10/31/23 04:46 Anion Gap 13.2 (5-19) 10/31/23 04:46 BUN 13 mg/dL (8-23) 10/31/23 04:46 Creatinine 0.7 mg/dL (0.5-0.9) 10/31/23 04:46 GFR Calculation Not Reportable 10/31/23 04:46 Glucose 104 mg/dL (65-115) 10/31/23 04:46 Calculated Osmolality 294 mOsm/kg (285-295) 10/31/23 04:46 Calcium 8.2 mg/dL (8.5-10.5) L 10/31/23 04:46 Magnesium 2.2 mg/dL (1.7-2.3) 10/29/23 04:24 Iron 27 ug/dL (37-145) L 10/29/23 04:24 TIBC 172 mcg/dl 10/29/23 04:24 % Saturation 15.6 % (20-50) L 10/29/23 04:24 Unsat Iron Binding 145 ug/dL (112-347) 10/29/23 04:24 Total Bilirubin 0.4 mg/dL (0.15-1.2) 10/28/23 08:45 AST 28 U/L (0-32) 10/28/23 08:45 ALT 23 U/L (0-33) 10/28/23 08:45 Alkaline Phosphatase 167 U/L (35-105) H 10/28/23 08:45 Total Protein 6.8 g/dL (6.6-8.7) 10/28/23 08:45 Albumin 3.3 g/dL (3.5-5.2) L 10/28/23 08:45 Globulin 3.5 g/dL (1.3-4.6) 10/28/23 08:45 Vitamin B12 423 pg/mL (232-1245) 10/29/23 04:24 Urine Color Yellow (Yellow) 10/28/23 23:15 Urine Appearance Clear (CLEAR) 10/28/23 23:15 Urine pH 5 (5-7) 10/28/23 23:15 Ur Specific [place] 1.010 (1.005-1.030) 10/28/23 23:15 Urine Protein Neg (Negative) 10/28/23 23:15 Urine Glucose (UA) Norm (Normal) 10/28/23 23:15 Urine Ketones Negative (Negative) 10/28/23 23:15 Urine Blood Neg (Negative) 10/28/23 23:15 Urine Nitrate Negative (Negative) 10/28/23 23:15 Urine Bilirubin Neg (Negative) 10/28/23 23:15 Urine Urobilinogen Norm mg/dL (Negative) 10/28/23 23:15 Ur Leukocyte Esterase Negative (Negative) 10/28/23 23:15 Blood Type O Positive 10/29/23 09:24 Rho(D) Type Rh positive 10/29/23 09:24 Antibody Screen Negative 10/29/23 09:24 Crossmatch See Detail 10/29/23 09:24 Vitals Last Vital Signs Temp 98.4 F 11/01/23 11:20 Pulse 62 11/01/23 11:20 Resp 16 11/01/23 11:20 BP 160/65 11/01/23 11:20 Pulse Ox 96 11/01/23 11:20 O2 Del Method Room Air 11/01/23 11:20 O2 Flow Rate 1 11/01/23 09:55 Discharge Plan Discharge Patient Disposition: Xfer SNF Condition: Stable Prescriptions: Discontinued sennosides 8.6 mg Tablet 8.6 mg PO BID acetaminophen 325 mg Tablet 650 mg PO QID PRN (Reason: Pain) lovastatin 40 mg tablet 40 mg PO BEDTIME risperidone 0.25 mg tablet 0.25 mg PO BID magnesium hydroxide [Milk of Magnesia] 400 mg/5 mL Suspension 30 ml PO DAILY PRN (Reason: Constipation) amlodipine 10 mg tablet 10 mg PO QAM alum-mag hydroxide-simeth [Mylanta] 200-200-20 mg/5 mL Suspension 30 ml PO QID PRN (Reason: Constipation) Rx Instructions: administer between meals and at bedtime fluticasone propionate 50 mcg/actuation spray,suspension 1 spray INTRANASAL DAILY memantine 10 mg tablet 10 mg PO BID PNV cmb#95-ferrous fumarate-FA [] 28 mg iron- 800 mcg Tablet 1 tab PO DAILY naloxone 2 mg/2 mL Syringe Kit 2 mg IM Q2M PRN (Reason: Opioid Overdose) Rx Instructions: NTExceed 10 mg total dose/episode ondansetron HCl [Zofran] 4 mg Tablet 4 mg PO Q6H PRN (Reason: Nausea And Vomiting) aspirin [Aspir-81] 81 mg Tablet,Delayed Release (Dr/Ec) 81 mg PO DAILY enoxaparin 30 mg/0.3 mL Syringe 30 mg SUBCUT BEDTIME paroxetine HCl 10 mg tablet 10 mg PO DAILY Discharge Orders: Discharge Order (Routine); Ordered 11/01/23 Ordered By: Stacia Fisher Referrals: Dianelys Escobar FNP [Family Provider] - Patient Instructions: Hospice Care (GEN), Bowel Obstruction (GEN) Discharge Attestations Time Spent in Discharge Care*: greater than 30 min Quality Metrics Clinical Quality Measures [ No reported AMI, CVA or VTE this stay] Coding Level of Care Code Acute Code for Chg Fwd Diagnoses Coffee ground emesis K92.0 Incarcerated incisional hernia K43.0 Small bowel obstruction K56.609
--- NOTE | 2023-11-01 11:37 | PC.NURSE ---
NG tube was discontinued per physicians order. Patient tolerated procedure fairly and was ordered a clear liquid diet. Bedside swallow successful and ice water given. Restraints removed at 1100am by this nurse. Neuro vascular checks intact. Will continue to monitor.
--- NOTE | 2023-11-01 13:39 | PC.NURSE ---
Called [facility] nursing gave report to PIETER Ferrera
[2023-11-01 13:50] LABS: SARS Covid-2 Antigen negative (Negative)
--- NOTE | 2023-11-01 14:00 | PC.SOCIAL ---
IMM Updated Updated family on IMM. No questions voiced. Provided pt a copy. Initialed, dated, & timed copy in chart.
== END 2023-11-01 16:28 | disposition skilled nursing facility (03) | DRG 389 ==
LOC: ER 16:32 → MEDSURG 17:58
PROVIDERS: Admitting Provider Internal Medicine; Emergency Provider Internal Medicine; Family Provider Nurse Practitioner; Visit Provider Internal Medicine
DX: K56.601 Complete intestinal obstruction, unspecified as to cause (principal); F05 Delirium due to known physiological condition; K43.0 Incisional hernia with obstruction, without gangrene; K92.0 Hematemesis; M97.8XXA Periprosthetic fracture around other internal prosthetic joint, initial encounter; E86.0 Dehydration; Z51.5 Encounter for palliative care; Z66 Do not resuscitate; D64.9 Anemia, unspecified; Z79.82 Long term (current) use of aspirin; Z79.01 Long term (current) use of anticoagulants; F03.90 Unspecified dementia, unspecified severity, without behavioral disturbance, psychotic disturbance, mood disturbance, and anxiety
CPT/HCPCS: 36415; 36430; 51702; 71045; 74018; 74177; 80048; 80053; 81003; 82607; 83540; 83550; 83735; 85025; 85610; 85730; 86850; 86900; 86920; 87426; 96374; 99285; C9113; J1170; J1885; J2270; J2543; J3480; J7042; P9016; Q9967

== ENCOUNTER 2024-01-23 13:18 | Outpatient (CLI) | payer MEDICARE, MEDICAID, SELFPAY ==
--- NOTE | 2024-01-23 13:31 | XR_ITS ---
WS: [id number] DEXA (DUAL ENERGY X-RAY ABSORPTIOMETRY) Bone mineral density was performed using a Whisk (formerly Zypsee) machine. HISTORY: AGE RELATED OSTEOPOROSIS COMPARISON: 06/28/2016 Lumbar spine BMD (L1-L4): 1.051 g/cm2 T score: -1.1 Z score: 0.8 Total hip BMD: Left: 0.525 (g/cm2). T score: -3.8 (no units) Z score: -2.1 (no units) Left forearm BMD: 0.583 g/cm2. T score: -3.3 Z score: -1.3 10 year probability of a major osteoporotic fracture is 41%. Compared to the prior study from 06/28/2016. Lumbar spine bone mineral density has decreased by 11.4%. LEFT hip bone mineral density has decreased by 23.1%. Severe rotary scoliosis lumbar spine. IMPRESSION: Osteoporosis AT based upon the WHO classification for females. Significant decrease in bone mineral density within the lumbar spine and LEFT hip since the prior puja dy.
== END 2024-01-23 13:19 | disposition home or self-care (01) ==
LOC: RAD 13:18
PROVIDERS: Family Provider Nurse Practitioner; Visit Provider Nurse Practitioner
DX: M81.0 Age-related osteoporosis without current pathological fracture (principal); M85.9 Disorder of bone density and structure, unspecified
CPT/HCPCS: 77080

== ENCOUNTER 2024-07-07 17:15 | Emergency (ER) | payer MEDICARE, MEDICAID, SELFPAY ==
[2024-07-07 17:16] VITALS: BP 143/100; PULSE 85; RESP 18; TEMP 36.4; O2SAT 98; BMI 30.7
--- NOTE | 2024-07-07 17:25 | CTR_ITS ---
PROCEDURE INFORMATION: Exam: CT Head Without Contrast Exam date and time: 07/07/2024 5:42 PM Age: 73 years old Clinical indication: Altered mental status/memory loss; Additional info: Report of seizures TECHNIQUE: Imaging protocol: Computed tomography of the head without contrast. Radiation optimization: All CT scans at this facility use at least one of these dose optimization techniques: automated exposure control; mA and/or kV adjustment per patient size (includes targeted exams where dose is matched to clinical indication); or iterative reconstruction. COMPARISON: CT head wo con* [id number] 10/15/2023 6:20 PM RADIATION DOSE METRICS: Total DLP (mGy-cm): 1577 FINDINGS: Brain: No hemorrhage. No edema. Moderate diffuse cerebral atrophy and sequela of chronic small vessel ischemic disease. No mass effect. Cerebral ventricles: No ventriculomegaly. Paranasal sinuses: Visualized sinuses are unremarkable. No fluid levels. Mastoid air cells: Visualized mastoid air cells are well aerated. Bones: Unremarkable. No acute fracture. Soft tissues: Unremarkable. CT/CT head wo con* [id number] IMPRESSION: No acute intracranial abnormality.
--- NOTE | 2024-07-07 17:26 | XRR_ITS ---
PROCEDURE INFORMATION: Exam: XR Chest Exam date and time: 07/07/2024 6:37 PM Age: 73 years old Clinical indication: Other: Weakness; Patient HX: AMS TECHNIQUE: Imaging protocol: Radiologic exam of the chest. Views: 1 view. COMPARISON: CR XR chest 1V portable [id number] 10/31/2023 8:23 AM FINDINGS: Lungs: Numerous calcified granulomas noted in both lungs. No consolidation. Pleural spaces: Unremarkable. No pleural effusion. No pneumothorax. Heart/Mediastinum: Unremarkable. No cardiomegaly. Bones/joints: Moderate dextroscoliosis of the thoracolumbar spine. XR/XR chest 1V portable [id number] IMPRESSION: No acute findings.
--- NOTE | 2024-07-07 17:26 | ECG_ITS ---
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1950 Requested By: Libby Rivero Order Number: [id number] Alejandra MD: ASHLEE MIMS Measurements Intervals [place] Rate: 89 P: 100 [place]: 148 QRS: 65 QRSD: 90 T: 167 QT: 336 QTc: 409 Interpretive Statements SINUS RHYTHM POSSIBLE LATERAL MYOCARDIAL INFARCTION , OF INDETERMINATE AGE [30 ms Q WAVE IN I/aVL/V5/V6] INTERPRETATION BASED ON A DEFAULT AGE OF 40 YEARS Compared to ECG 10/15/2023 19:29:20 No significant changes Electronically Signed On 07-08-2024 20:12:40 CDT by ASHLEE MIMS [id number]
--- NOTE | 2024-07-07 17:49 | W.ED.SEIZURE ---
HPI - Seizure General: Chief Complaint: Seizure Stated Complaint: AMS, Seizures Time Seen by Provider: 07/07/24 17:22 History of Present Illness: HPI Narrative: 73-year-old female with a history of dementia anemia, cardiomyopathy, behavioral issues, hyperlipidemia, depression, hypertension and fibromyalgia who presents to the emergency room by ambulance from [facility] with concern for a possible seizure. This was reported to have lasted 11 minutes. Seizure History: No Place: Home Related Data Allergies Allergy/AdvReac Type Severity Reaction Status Date / Time gabapentin Allergy Unknown Verified 10/28/23 09:59 [facility] ED PFSH: Medical History Hip fracture Dementia Surgical History History of hip surgery Physical Exam Narrative: EXAM NARRATIVE: General: Alert, no acute distress. Skin: Warm, dry. Head: Normocephalic, atraumatic. Neck: Supple, trachea midline. Eye: Extraocular movements are intact. Ears, nose, mouth and throat: mucosa moist. Cardiovascular: Regular, Normal peripheral perfusion. Respiratory: Lungs are clear to auscultation, respirations are non-labored, breath sounds are equal, Symmetrical chest wall expansion. Gastrointestinal: Soft, Nontender, Non distended, Normal bowel sounds. Musculoskeletal: Normal ROM, no deformity. Neurological: Alert but not oriented, No focal neurological deficit observed. Psychiatric: Patient seems confused/demented. Course Vital Signs: Vital signs: Vital Signs Temperature 97.6 F 07/07/24 17:16 Pulse Rate 91 07/07/24 19:38 Respiratory Rate 18 07/07/24 17:16 Blood Pressure 125/97 07/07/24 19:38 Pulse Oximetry 97 07/07/24 19:38 Oxygen Delivery Me thod Room Air 07/07/24 18:32 MDM - Seizure MDM Narrative Medical decision making narrative: Medical decision making: Differential diagnosis for this patient with a complaint of seizure like activity would include but not be limited to, and based on the above HPI, review of systems and physical exam: seizure, DT's, alcohol withdrawal, brain malignancy, pseudo-seizure, syncope. Orders placed to evaluate differential diagnosis based on the above differential, HPI and physical exam CT head: No acute intracranial process. no intracranial hemorrhage, no evidence of infarct. no evidence of acute fracture.This was reviewed and interpreted by myself the ER physician. Chest x-ray: No acute process. No infiltrate. No pneumothorax. This was reviewed and interpreted by myself the ER physician. EKG: Time 1726. Rate 89. Normal sinus rhythm, No ST-T changes, no ectopy, normal HI & QRS intervals, This was reviewed and interpreted by myself the ER physician at 1730. Lab Review: Laboratory results were reviewed and interpreted by myself the emergency room physician Lab work is unremarkable. White count is 8. Hemoglobin is 10.9. BUN and creatinine are 24 and 0.6. Might be slightly dehydrated so some fluids have been given. Urinalysis shows no signs of infection. Most importantly her lactate is 1.2 which indicate that what ever type of activity she had it was likely not a true tonic-clonic seizure that lasted 12 minutes or she would have an elevated lactate. I reviewed the patient's medical record. Reexamination: Patient remained stable. No increased work of breathing. No change in her mentation. No further seizures. Assessment and plan: Seizure-like activity Dehydration Dementia ?Normal saline bolus - Discharged home - Discussed findings and plan with patient. Answered any questions. - All laboratory values were reviewed and interpreted personally by myself, the ER physician - All imaging was reviewed and interpreted personally by myself, the ER physician. - Evaluation and treatment of this problem were appropriate in the emergency setting Lab Data 07/07/24 17:47 07/07/24 17:47 Labs: Radiology Impressions Head CT 07/07/24 17:25 IMPRESSION: No acute intracranial abnormality. Chest X-Ray 07/07/24 17:26 IMPRESSION: No acute findings. Laboratory Results WBC 8.95 10^3/uL (3.29-11.43) 07/07/24 17:47 RBC 4.09 10^6/uL (3.85-5.65) 07/07/24 17:47 Hgb 10.90 g/dL (11.27-16.99) L 07/07/24 17:47 Hct 35.5 % (36-47) L 07/07/24 17:47 MCV 86.8 fl (85-98) 07/07/24 17:47 MCH 26.7 pg (27-33) L 07/07/24 17:47 MCHC 30.7 g/dL (30-55) 07/07/24 17:47 RDW 14.6 % (12.1-15.1) 07/07/24 17:47 Plt Count 376 10^3/cmm (157-399) 07/07/24 17:47 MPV 9.9 fL (7.4-10.4) 07/07/24 17:47 Neut % (Auto) 78.4 % 07/07/24 17:47 Lymph % (Auto) 11.5 % 07/07/24 17:47 [place] % (Auto) 7.3 % 07/07/24 17:47 Eos % (Auto) 1.6 % 07/07/24 17:47 Baso % (Auto) 0.6 % 07/07/24 17:47 Neut # (Auto) 7.03 10^3/uL (1.8-7.7) 07/07/24 17:47 Lymph # (Auto) 1.0 10^3/uL (0.8-4.8) 07/07/24 17:47 [place] # (Auto) 0.7 10^3/uL (0.2-0.9) 07/07/24 17:47 Eos # (Auto) 0.1 10^3/uL (0.0-0.8) 07/07/24 17:47 Baso # (Auto) 0.1 10^3/uL (0.0-0.1) 07/07/24 17:47 Nucleated RBC % (auto) 0 % 07/07/24 17:47 Nucleated RBCs # 0.0 /100WBC 07/07/24 17:47 Sodium 136 mmol/L (136-145) 07/07/24 17:47 Potassium 4.4 mmol/L (3.5-5.1) 07/07/24 17:47 Chloride 101 mmol/L (98-107) 07/07/24 17:47 Carbon Dioxide 23 mmol/L (22-29) 07/07/24 17:47 Anion Gap 16.4 (5-19) 07/07/24 17:47 BUN 24 mg/dL (8-23) H 07/07/24 17:47 Creatinine 0.6 mg/dL (0.5-0.9) 07/07/24 17:47 GFR Calculation Not Reportable 07/07/24 17:47 Glucose 114 mg/dL (65-115) 07/07/24 17:47 Calculated Osmolality 287 mOsm/kg (285-295) 07/07/24 17:47 Lactic Acid 1.2 mmol/L (0.5-2.2) 07/07/24 17:47 Calcium 9.0 mg/dL (8.5-10.5) 07/07/24 17:47 Total Bilirubin 0.2 mg/dL (0.15-1.2) 07/07/24 17:47 AST 13 U/L (0-32) 07/07/24 17:47 ALT 12 U/L (0-33) 07/07/24 17:47 Alkaline Phosphatase 138 U/L (35-105) H 07/07/24 17:47 Total Protein 7.9 g/dL (6.6-8.7) 07/07/24 17:47 Albumin 3.6 g/dL (3.5-5.2) 07/07/24 17:47 Globulin 4.3 g/dL (1.3-4.6) 07/07/24 17:47 Urine Color Yellow (Yellow) 07/07/24 19:31 Urine Appearance Clear (CLEAR) 07/07/24 19:31 Urine pH 6.5 (5-7) 07/07/24 19:31 Ur Specific [place] 1.013 (1.005-1.030) 07/07/24 19:31 Urine Protein Negative (Negative) 07/07/24 19:31 Urine Glucose (UA) Negative (Normal) 07/07/24 19:31 Urine Ketones Negative (Negative) 07/07/24 19:31 Urine Blood Negative (Negative) 07/07/24 19:31 Urine Nitrate Negative (Negative) 07/07/24 19:31 Urine Bilirubin Negative (Negative) 07/07/24 19:31 Urine Urobilinogen 0.2 mg/dL (Negative) 07/07/24 19:31 Ur Leukocyte Esterase Negative (Negative) 07/07/24 19:31 Amorphous Sediment Not Reportable 07/07/24 19:31 Coronavirus (PCR) Negative (Negative) 07/07/24 Unknown Influenza A (PCR) Negative (Negative) 07/07/24 Unknown Influenza Type B (PCR) Negative (Negative) 07/07/24 Unknown RSV (PCR) Negative (Negative) 07/07/24 Unknown All radiology interpretation(s) finalized by discharge Discharge Plan Discharge Patient Disposition: Home Clinical Impression: Seizure-like activity, Advanced dementia, Dehydration Condition: Stable Discharge Orders: Discharge ED (Routine); Ordered 07/07/24 Ordered By: Libby Orlando Referrals: Dianelys Escobar, [employer]RARIAN [Primary Care Provider] - Discharge Diet: Usual diet Discharge Activity: Increase activity as tolerated Patient Instructions: Nonepileptic Seizures (ED) Activity Restrictions/Additional Instructions: Thank you for choosing [facility] for your healthcare needs today. Please realize this is an emergency room and that we are providing you with a medical screening exam and this may not be complete and all inclusive of all the testing and or work up that you may need to determine your ailment or severity of your illness. You have been screened and evaluated and felt safe for discharge. Health conditions do change or evolve sometimes and as such it is important that you follow up with your Primary Doctor to be re checked, 3-5 days is a general good time frame for follow up. You are always welcome to return to the ED for re assessment if your symptoms are worsening or you have new concerns Coding Level of Care Code ED Chief Of Hospital Medicine for Ion Peterson
[2024-07-07 18:32] VITALS: BP 160/92; PULSE 82; O2SAT 95
[2024-07-07 18:43] LABS: Basophils # 0.1 10^3/uL (0.0-0.1); Basophils % 0.6 %; Eosinophils # 0.1 10^3/uL (0.0-0.8); Eosinophils % 1.6 %; Hematocrit 35.5 % (36-47); Lymphocytes % 11.5 %; Mean Corpuscular HGB Conc 30.7 g/dL (30-55); Mean Corpuscular Hemoglobin 26.7 pg (27-33); Mean Corpuscular Volume 86.8 fl (85-98); Mean Platelet Volume 9.9 fL (7.4-10.4); Monocytes # 0.7 10^3/uL (0.2-0.9); Monocytes % 7.3 %; Neutrophils # 7.03 10^3/uL (1.8-7.7); Neutrophils % 78.4 %; Nucleated Red Blood Cells % 0 %; Platelet Count 376 10^3/cmm (157-399); Red Blood Count 4.09 10^6/uL (3.85-5.65); Red Cell Distribution Width 14.6 % (12.1-15.1); White Blood Count 8.95 10^3/uL (3.29-11.43)
[2024-07-07 19:00] LABS: Alanine Aminotransferase 12 U/L (0-33); Albumin Level 3.6 g/dL (3.5-5.2); Alkaline Phosphatase 138 U/L (35-105); Anion Gap 16.4 (5-19); Aspartate Amino Transferase 13 U/L (0-32); Blood Urea Nitrogen 24 mg/dL (8-23); Carbon Dioxide 23 mmol/L (22-29); Chloride 101 mmol/L (98-107); Creatinine Clr Calc Pharmacy 69.2627; Globulin 4.3 g/dL (1.3-4.6); Glucose 114 mg/dL (65-115); Osmolality Calculated 287 mOsm/kg (285-295); Potassium 4.4 mmol/L (3.5-5.1); Sodium 136 mmol/L (136-145); Total Bilirubin 0.2 mg/dL (0.15-1.2); Total Protein 7.9 g/dL (6.6-8.7)
[2024-07-07 19:01] LABS: Lactic Sepsis W/Reflex 1.2 mmol/L (0.5-2.2)
[2024-07-07 19:28] LABS: Covid PCR NEGATIVE (Negative); Influenza A NEGATIVE (Negative); Influenza B NEGATIVE (Negative); Respiratory Syncytial Virus Ce NEGATIVE (Negative)
[2024-07-07] MEDS: sodium chloride 0.9% 1,000 ML 999 ML IV (19:37)
[2024-07-07 19:38] VITALS: BP 125/97; PULSE 91; O2SAT 97
[2024-07-07 19:43] LABS: Bilirubin Urine Negative (Negative); Blood Urine Negative (Negative); Glucose Urine UA Negative (Normal); Ketones Urine Negative (Negative); Leukocyte Esterase Urine Negative (Negative); Nitrate Urine Negative (Negative); Protein Urine Negative (Negative); Specific Gravity, Urine 1.013 (1.005-1.030); Urine Appearance Clear (CLEAR); Urine Color Yellow (Yellow); Urobilinogen Urine 0.2 mg/dL (Negative); pH Urine 6.5 (5-7)
[2024-07-07 19:47] LABS: Bacteria Urine None Seen /hpf; Hyaline Casts Urine 0.81 /lpf; RBC Urine 0-2 /hpf (0-2); Squamous Epithelial Cell Urine 0-5 /hpf (0-5); WBC Urine 0-5 /hpf (0-5)
[2024-07-07 20:03] LABS: Add Urine Culture? No
[2024-07-07 21:22] VITALS: BP 144/67; PULSE 86; O2SAT 95
[2024-07-07 22:21] VITALS: BP 150/122; PULSE 76; O2SAT 94
[2024-07-07 22:24] VITALS: BP 150/122; PULSE 76; O2SAT 96
[2024-07-08 14:27] LABS: Bacillus cereus group Not Detected (NOT DETECT); Bacillus subtillis group Not Detected (NOT DETECT); Corynebacterium Not Detected (NOT DETECT); Cutibacterium acnes (P.acnes) Not Detected (NOT DETECT); Enterococcus Not Detected (NOT DETECT); Enterococcus faecalis Not Detected (NOT DETECT); Enterococcus faecium Not Detected (NOT DETECT); Lactobacillus species Not Detected (NOT DETECT); Listeria Not Detected (NOT DETECT); Listeria monocytogenes Not Detected (NOT DETECT); Micrococcus Not Detected (NOT DETECT); Pan Candida Not Detected (NOT DETECT); Pan Gram-Negative Not Detected (NOT DETECT); Staphylococcus epidermidis Detected (NOT DETECT); Staphylococcus lugdunensis Not Detected (NOT DETECT); Staphylococcus species Detected (NOT DETECT); Streptococcus agalactiae Not Detected (NOT DETECT); Streptococcus anginosus group Not Detected (NOT DETECT); Streptococcus pneumoniae Not Detected (NOT DETECT); Streptococcus pyogenes Not Detected (NOT DETECT); Streptococcus species Not Detected (NOT DETECT); mecA Detected (NOT DETECT); mecC Not Detected (NOT DETECT)
== END 2024-07-07 22:26 | disposition home or self-care (01) ==
PROVIDERS: Emergency Provider Emergency Medicine; PCP Nurse Practitioner
DX: R56.9 Unspecified convulsions (principal); E86.0 Dehydration; F03.90 Unspecified dementia, unspecified severity, without behavioral disturbance, psychotic disturbance, mood disturbance, and anxiety; Z11.52 Encounter for screening for COVID-19
CPT/HCPCS: 0241U; 36415; 70450; 71045; 80053; 81001; 83605; 85025; 87040; 87077; 87186; 93005; 99285; J7030

== ENCOUNTER 2024-12-23 09:35 | Oncology outpatient (recurring) (ONCR) | payer MEDICARE, MEDICAID, SELFPAY ==
[2024-12-23] MEDS: denosumab 60 mg SDV SUBCUT (10:01)
== END 2024-12-28 23:59 | disposition home or self-care (01) ==
PROVIDERS: PCP Nurse Practitioner; Visit Provider Family Medicine
DX: M81.0 Age-related osteoporosis without current pathological fracture (principal); Z79.899 Other long term (current) drug therapy
CPT/HCPCS: 96372; J0897

== ENCOUNTER 2025-02-17 17:12 | Emergency (ER) | payer MEDICARE, MEDICAID, SELFPAY ==
[2025-02-17 17:12] VITALS: BP 185/93; PULSE 81; RESP 16; TEMP 36.8; O2SAT 95; BMI 29.0
--- NOTE | 2025-02-17 17:14 | ECG_ITS ---
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 Measurements Intervals [place] Rate: 80 P: 119 WV: 169 QRS: 54 QRSD: 125 T: 64 QT: 392 QTc: 453 Interpretive Statements SINUS RHYTHM MODERATE INTRAVENTRICULAR CONDUCTION DELAY [110+ ms QRS DURATION] MODERATE ST DEPRESSION [0.05+ mV ST DEPRESSION] Compared to ECG 07/07/2024 17:26:39 Intraventricular conduction delay now present ST (T wave) deviation now present Myocardial infarct finding no longer present Baseline artifacts, need to repeat Electronically Signed On 02-18-2025 18:07:42 CDT by Arlette Almonte M.D. [email or web address] [id number]
--- NOTE | 2025-02-17 17:15 | CTR_ITS ---
PROCEDURE INFORMATION: Exam: CT Head Without Contrast Exam date and time: 02/17/2025 5:24 PM Age: 74 years old Clinical indication: Altered mental status/memory loss; Additional info: Encephalopathy, altered mental status TECHNIQUE: Imaging protocol: Computed tomography of the head without contrast. Radiation optimization: All CT scans at this facility use at least one of these dose optimization techniques: automated exposure control; mA and/or kV adjustment per patient size (includes targeted exams where dose is matched to clinical indication); or iterative reconstruction. COMPARISON: CT head wo con* [id number] 07/07/2024 5:42 PM RADIATION DOSE METRICS: Total DLP (mGy-cm): 1371.78 FINDINGS: Limitations: Suboptimal image quality due to motion artifact. Brain: Similar moderate generalized cortical volume loss. No hemorrhage. Periventricular and subcortical white matter hypodensities likely represent chronic small vessel ischemic changes. No mass effect. Cerebral ventricles: No ventriculomegaly. Paranasal sinuses: Visualized sinuses are unremarkable. No fluid levels. Mastoid air cells: Visualized mastoid air cells are well aerated. Bones: Unremarkable. No acute fracture. Soft tissues: Unremarkable. CT/CT head wo con* [id number] IMPRESSION: No acute intracranial abnormality.
--- NOTE | 2025-02-17 17:15 | XRR_ITS ---
PROCEDURE INFORMATION: Exam: XR Chest Exam date and time: 02/17/2025 5:58 PM Age: 74 years old Clinical indication: Other: Weakness TECHNIQUE: Imaging protocol: Radiologic exam of the chest. Views: 1 view. COMPARISON: CR XR chest 1V portable [id number] 07/07/2024 6:37 PM FINDINGS: Lungs: Calcified granulomas again seen bilaterally. No consolidation. Pleural spaces: Unremarkable. No pleural effusion. No pneumothorax. Heart/Mediastinum: Stable cardiomediastinal silhouette. Bones/joints: Dextroscoliosis of the thoracic spine. XR/XR chest 1V portable [id number] IMPRESSION: No acute cardiopulmonary process.
[2025-02-17 17:45] LABS: ABG PCO2 40.1 mmHg (35-45); ABG PH Result 7.39 (7.35-7.45); HCO3 ABG 24.1 mmol/L (22-26); PO2 ABG 78.5 mmHg (80.0-100.0)
[2025-02-17 17:46] LABS: Base Excess ABG -0.9 mmol/L (-2.0-2.0); Blood Gas Allen Test pos; Blood Gas Operator Identificat cw; Oxygen Saturation ABG 96; PO2 FiO2 Ratio Arterial Blood 373
[2025-02-17 17:47] LABS: Arterial Blood Gas Hematocrit 35.8 % (37-47); Blood Gas Sample Site left radial; Blood Gas Sample Type art; Oxygen Device r/a
[2025-02-17 17:48] LABS: Alveolar-Arterial Oxygen Gradi 20.2 mmHg (5-10); Carboxyhemoglobin 0.8 %THgb (0.4-20.1); HGB O2 Sat 94.2 % (95-100); Ionized Calcium Level - ABG 1.1 mmol/L (1.1-1.4); Methemoglobin 1.1 % (0.4-1.5); Total Hemoglobin 11.7 g/dL (12-16)
[2025-02-17 18:00] LABS: Basophils % 0.4 %; Eosinophils # 0.1 10^3/uL (0.0-0.8); Eosinophils % 1.7 %; Hematocrit 37.7 % (36-47); Lymphocytes # 1.1 10^3/uL (0.8-4.8); Lymphocytes % 14.7 %; Mean Corpuscular Hemoglobin 26.3 pg (27-33); Mean Corpuscular Volume 87.9 fl (85-98); Mean Platelet Volume 10.3 fL (7.4-10.4); Monocytes # 0.5 10^3/uL (0.2-0.9); Monocytes % 6.1 %; Neutrophils # 5.78 10^3/uL (1.8-7.7); Neutrophils % 76.8 %; Nucleated Red Blood Cells % 0 %; Platelet Count 237 10^3/cmm (157-399); Red Blood Count 4.29 10^6/uL (3.85-5.65); Red Cell Distribution Width 14.9 % (12.1-15.1); White Blood Count 7.53 10^3/uL (3.29-11.43)
--- NOTE | 2025-02-17 18:05 | W.ED.SEIZURE ---
HPI - Seizure General: Chief Complaint: Seizure Stated Complaint: Seizure Time Seen by Provider: 02/17/25 17:13 History of Present Illness: HPI Narrative: 74-year-old female with advanced dementia with behavioral issues, history of stroke, violent behavior, hyperlipidemia, depression and fibromyalgia who presents the emergency room by ambulance from [facility]. Apparently this is the fourth time she has been to the emergency room for seizure-like activity. EMS reports that the [facility] reported that she had full-blown seizure for 20 minutes . Here she appears to be back to her baseline. She is a bit agitated but this seems to be her baseline. Seizure History: No Related Data Allergies Allergy/AdvReac Type Severity Reaction Status Date / Time gabapentin Allergy Unknown Verified 10/28/23 09:59 Review of Systems General: Reports: ROS unobtainable due to medical condition PFS ED PFSH: Medical History Hip fracture Dementia Surgical History History of hip surgery Physical Exam Narrative: EXAM NARRATIVE: General: Alert, no acute distress. Skin: Warm, dry. Head: Normocephalic, atraumatic. Neck: Supple, trachea midline. Eye: Extraocular movements are intact. Ears, nose, mouth and throat: mucosa moist. Cardiovascular: Regular, Normal peripheral perfusion. Respiratory: Lungs are clear to auscultation, respirations are non-labored, breath sounds are equal, Symmetrical chest wall expansion. Gastrointestinal: Soft, Nontender, Non distended Musculoskeletal: Normal ROM, no deformity. Neurological: Alert but not oriented, No focal neurological deficit observed. Psychiatric: Patient seems confused/demented. Course Vital Signs: Vital signs: Vital Signs Temperature 98.3 F 02/17/25 17:12 Pulse Rate 81 02/17/25 17:12 Respiratory Rate 16 02/17/25 17:12 Blood Pressure 185/93 02/17/25 17:12 Pulse Oximetry 95 02/17/25 17:12 Oxygen Delivery Me thod Room Air 02/17/25 17:12 MDM - Seizure MDM Narrative Medical decision making narrative: Medical decision making: Differential diagnosis for this patient with a complaint of seizure like activity would include but not be limited to, and based on the above HPI, review of systems and physical exam: seizure, DT's, alcohol withdrawal, brain malignancy, pseudo-seizure, syncope. Orders placed to evaluate differential diagnosis based on the above differential, HPI and physical exam Lab Review: Laboratory results were reviewed and interpreted by myself the emergency room physician Lab work is unremarkable. No leukocytosis. No anemia. No renal failure. Most pertinently her lactate and her ABG are negative for acidosis which would mean she most certainly did not have a 20-minute tonic-clonic seizure. I reviewed the patient's medical record. Reexamination: Patient remained stable. No increased work of breathing. Appears to be at her baseline mentation. No focal motor deficits. Assessment and plan: Seizure-like activity - Discharged home - Discussed plan with patient. Answered any questions. - Evaluation and treatment of this problem were appropriate in the emergency setting. Lab Data 02/17/25 17:51 02/17/25 17:48 Labs: Radiology Impressions Chest X-Ray 02/17/25 17:15 IMPRESSION: No acute cardiopulmonary process. Head CT 02/17/25 17:15 IMPRESSION: No acute intracranial abnormality. Laboratory Results WBC 7.53 10^3/uL (3.29-11.43) 02/17/25 17:51 RBC 4.29 10^6/uL (3.85-5.65) 02/17/25 17:51 Hgb 11.30 g/dL (11.27-16.99) 02/17/25 17:51 Hct 37.7 % (36-47) 02/17/25 17:51 MCV 87.9 fl (85-98) 02/17/25 17:51 MCH 26.3 pg (27-33) L 02/17/25 17:51 MCHC 30.0 g/dL (30-55) 02/17/25 17:51 RDW 14.9 % (12.1-15.1) 02/17/25 17:51 Plt Count 237 10^3/cmm (157-399) 02/17/25 17:51 MPV 10.3 fL (7.4-10.4) 02/17/25 17:51 Neut % (Auto) 76.8 % 02/17/25 17:51 Lymph % (Auto) 14.7 % 02/17/25 17:51 [place] % (Auto) 6.1 % 02/17/25 17:51 Eos % (Auto) 1.7 % 02/17/25 17:51 Baso % (Auto) 0.4 % 02/17/25 17:51 Neut # (Auto) 5.78 10^3/uL (1.8-7.7) 02/17/25 17:51 Lymph # (Auto) 1.1 10^3/uL (0.8-4.8) 02/17/25 17:51 [place] # (Auto) 0.5 10^3/uL (0.2-0.9) 02/17/25 17:51 Eos # (Auto) 0.1 10^3/uL (0.0-0.8) 02/17/25 17:51 Baso # (Auto) 0.0 10^3/uL (0.0-0.1) 02/17/25 17:51 Nucleated RBC % (auto) 0 % 02/17/25 17:51 Nucleated RBCs # 0.0 /100WBC 02/17/25 17:51 Specimen Type art 02/17/25 17:29 Sample Site left radial 02/17/25 17:29 ABG pH 7.39 (7.35-7.45) 02/17/25 17:29 ABG pCO2 40.1 mmHg (35-45) 02/17/25 17:29 ABG pO2 78.5 mmHg (80.0-100.0) L 02/17/25 17:29 ABG PO2/FiO2 Ratio 373 02/17/25 17:29 ABG HCO3 24.1 mmol/L (22-26) 02/17/25 17:29 ABG O2 Saturation 96 02/17/25 17:29 ABG Base Excess -0.9 mmol/L (-2.0-2.0) 02/17/25 17:29 Rafael Test pos 02/17/25 17:29 A-a O2 Gradient 20.2 mmHg (5-10) H 02/17/25 17:29 Hematocrit 35.8 % (37-47) L 02/17/25 17:29 Hgb O2 Saturation 94.2 % (95-100) L 02/17/25 17:29 Carboxyhemoglobin 0.8 %THgb (0.4-20.1) 02/17/25 17:29 Methemoglobin 1.1 % (0.4-1.5) 02/17/25 17:29 Total Hemoglobin 11.7 g/dL (12-16) L 02/17/25 17:29 Sodium 141.0 mmol/L (131-143) 02/17/25 17:29 Potassium 4.0 mmol/L (3.5-5.0) 02/17/25 17:29 Glucose 105.0 mg/dL (70-115) 02/17/25 17:29 Ionized Calcium 1.1 mmol/L (1.1-1.4) 02/17/25 17:29 O2 Delivery Device r/a 02/17/25 17:29 FiO2 21.0 % 02/17/25 17:29 Specimen Drawn By maurizio 02/17/25 17:29 Occupational Health Rn ID [email or web address] 02/17/25 17:29 Sodium 139 mmol/L (136-145) 02/17/25 17:48 Potassium 4.1 mmol/L (3.5-5.1) 02/17/25 17:48 Chloride 104 mmol/L (98-107) 02/17/25 17:48 Carbon Dioxide 22 mmol/L (22-29) 02/17/25 17:48 Anion Gap 17.1 (5-19) 02/17/25 17:48 BUN 13 mg/dL (8-23) 02/17/25 17:48 Creatinine 0.5 mg/dL (0.5-0.9) 02/17/25 17:48 GFR Calculation Not Reportable 02/17/25 17:48 Glucose 99 mg/dL (65-115) 02/17/25 17:48 Calculated Osmolality 288 mOsm/kg (285-295) 02/17/25 17:48 Lactic Acid 0.8 mmol/L (0.5-2.2) 02/17/25 17:51 Calcium 8.4 mg/dL (8.5-10.5) L 02/17/25 17:48 Total Bilirubin 0.2 mg/dL (0.15-1.2) 02/17/25 17:48 AST 13 U/L (0-32) 02/17/25 17:48 ALT 11 U/L (0-33) 02/17/25 17:48 Alkaline Phosphatase 156 U/L (35-105) H 02/17/25 17:48 C-Reactive Protein 3.0 mg/L (0.0-4.9) 02/17/25 17:48 Total Protein 7.6 g/dL (6.6-8.7) 02/17/25 17:48 Albumin 3.9 g/dL (3.5-5.2) 02/17/25 17:48 Globulin 3.7 g/dL (1.3-4.6) 02/17/25 17:48 All radiology interpretation(s) finalized by discharge Discharge Plan Discharge Patient Disposition: Home Clinical Impression: Non-epileptic convulsion Condition: Stable Discharge Orders: Discharge ED (Routine); Ordered 02/17/25 Ordered By: Libby Orlando Referrals: Benita Watkins MD [Physician, Neurology] - 7-10 days Referral Note: Please call for follow-up Dianelys Escobar FNP [Primary Care Provider, Nurse Practitioner] Discharge Diet: Usual diet Discharge Activity: Increase activity as tolerated Patient Instructions: Nonepileptic Seizures (ED), Opioid Safety, Pain Management Activity Restrictions/Additional Instructions: This does not appear to be a life-threatening epileptic type seizure. Lactic acid and blood gas are all normal. If she had 20 minutes of a true seizure these would be elevated. Perhaps this is something behavioral. Either way it is nonlife threatening. She needs to have follow-up with neurology. Thank you for choosing [facility] for your healthcare needs today. You have been screened and evaluated and felt safe for discharge. Health conditions do change or evolve sometimes and as such it is important that you follow up with your Primary Doctor to be re checked, 3-5 days is a general good time frame for follow up. You are always welcome to return to the ED for re assessment if your symptoms are worsening or you have new concerns Print Language: German Coding Level of Care Code ED Java [id number] Software Engineer for Ion Peterson
[2025-02-17 18:18] LABS: Alanine Aminotransferase 11 U/L (0-33); Albumin Level 3.9 g/dL (3.5-5.2); Alkaline Phosphatase 156 U/L (35-105); Anion Gap 17.1 (5-19); Aspartate Amino Transferase 13 U/L (0-32); Blood Urea Nitrogen 13 mg/dL (8-23); Calcium 8.4 mg/dL (8.5-10.5); Carbon Dioxide 22 mmol/L (22-29); Chloride 104 mmol/L (98-107); Creatinine Clr Calc Pharmacy 66.4617; Globulin 3.7 g/dL (1.3-4.6); Glucose 99 mg/dL (65-115); Osmolality Calculated 288 mOsm/kg (285-295); Potassium 4.1 mmol/L (3.5-5.1); Sodium 139 mmol/L (136-145); Total Bilirubin 0.2 mg/dL (0.15-1.2); Total Protein 7.6 g/dL (6.6-8.7)
[2025-02-17 18:19] LABS: Lactic Sepsis W/Reflex 0.8 mmol/L (0.5-2.2)
[2025-02-17 20:35] VITALS: BP 160/79; PULSE 80; RESP 16; O2SAT 96
== END 2025-02-17 19:50 | disposition home or self-care (01) ==
PROVIDERS: Emergency Provider Emergency Medicine; PCP Nurse Practitioner
DX: R56.9 Unspecified convulsions (principal)
CPT/HCPCS: 36415; 36600; 70450; 71045; 80051; 80053; 82330; 82805; 83605; 85025; 86140; 87040; 93005; 99285